=== PATIENT | male | born 1975 | race Caucasian/White ===

== ENCOUNTER 2016-09-11 19:25 | Emergency (ER) | payer OTHER ==
[~2016-09-11 19:25] MED LIST: /CELE20CA OR; BACT800T5 PO; NORC7.5T PO; PYRI200T5 PO; SUPE1POW PO; [UNRECOGNIZED DRUG - OTHER] PO
[2016-09-11] MEDS ORDERED: OXYCODONE/APAP 5MG/325MG(BULK) 1 TAB TAB As Ordered ONE (21:23)
--- NOTE | 2016-09-11 21:36 | EDDOCDS ---
Nurse's Notes [facility] Name: Dank Jaime Age: 41 yrs Sex: Male : 1975 Arrival Date: 09/11/2016 Time: 19:25 Bed I7 / 29 Private MD: No Pcp Diagnosis: Strain of muscle, fascia and tendon of abdomen, lower back and pelvis;Scoliosis Presentation: 09/11 19:44 Presenting complaint: Patient states: woke up with RLQ pain. lower back pain radiating rs3 to lower abdomen, bilateral leg to knee since this morning. worse with bending over. denies burning/urgency with urination. Acute neurological deficits are not present. Mechanism of Injury: No Mechanism of Injury. Adult Sepsis Screening: The patient does not have new or worsening altered mentation. Patient's respiratory rate is less than 22. Systolic blood pressure is greater than 100. Patient has a qSOFA score of 0- Negative Sepsis Screen. Suicide/Homicide risk assessment- the patient denies having any suicidal and/or homicidal ideations and does not present with any other emotional, behavioral or mental health complaints. Status: Patient is not a business services officer or dependent. Transition of care: patient was not received from another setting of care. 19:44 Acuity: ADRIENNE Level 3 rs3 19:44 Method Of Arrival: Walkin/Carried/Asstd rs3 Triage Assessment: 19:48 General: Appears uncomfortable. Pain: Location: lumbar area and low back area. HIV rs3 screening NA for this visit Offered previously. Musculoskeletal: Signs and Symptoms of Compartment Syndrome: no signs of compartment syndrome. Historical: - Allergies: no known allergies; - Home Meds: 1. none - PMHx: Kidney stones; - PSHx: removal of testicular mass; Ureteral Stent- Left; - Social history: Smoking status: Patient states was never smoker of tobacco. No barriers to communication noted, The patient speaks fluent Mongolian. - Family history: Not pertinent. - : The pt / caregiver states he / she is not on anticoagulants. Home medication list is obtained from the patient. - Exposure Risk Screening:: None identified. Screenin:34 Screening information is obtained from the patient. Fall risk: No risks identified. ld5 Assistance ADL's: requires no assistance with activities of daily living. Abuse/DV Screen: The patient / caregiver reports he/she is: not in a situation that causes fear, pain or injury. Nutritional screening: No deficits noted. Advance Directives: There is no active DNR order. home support is adequate. Assessment: 21:32 General: Appears uncomfortable, Behavior is fussy. Pain: Location: low back area Pain ld5 currently is 10 out of 10 on a pain scale. Neurological: Level of Consciousness is awake, alert. Respiratory: Airway is patent Respiratory effort is even, unlabored. Musculoskeletal: Reports pain in back. Vital Signs: 19:26 BP 144 / 89; Pulse 80; Resp 18; Temp 97.8; Pulse Ox 100% ; Weight 90.72 kg; Height 5 elp ft. 10 in. (177.80 cm); Pain 9/10; 21:32 BP 145 / 89; Pulse 78; Resp 18; Temp 98.3; Pulse Ox 95% on R/A; Pain 10/10; ld5 19:26 Body Mass Index 28.70 (90.72 kg, 177.80 cm) el Vitals: 19:26 Log In Time: September 11, 2016 at 19:15. [facility] ED Course: 19:26 Patient visited by Rebecca Ashley PCA. elp 19:26 No Pcp is Private Physician. elp 19:26 Patient moved to Waiting elp 19:27 Patient visited by Rebecca Ashley PCA. elp 19:27 Patient moved to Pre RCE elp 19:47 Triage Initiated rs3 19:50 Patient moved to Triage 3 ct3 20:20 [facility] mo1 20:21 Mayito Pizarro DO is Attending Physician. mo1 20:31 Patient visited by Demetrio Fajardo PA. mo1 20:43 UA Sent. ct3 20:48 Patient moved to I7 / ajs 21:18 Demarcus Lorenzo is Referral Physician. mo1 21:34 The patient / caregiver is instructed regarding the plan of care and ED course. Patient ld5 has correct armband on for positive identification. 21:34 No IV's were initiated during this patient's visit. No procedures done that require ld5 assistance. 21:36 Patient visited by Enriqueta Richey RN. ld5 Administered Medications: 20:49 Drug: ketorolac 60 mg [ketorolac 30 mg/mL (1 mL) injection solution (2 mL)] Route: IM; jo3 Site: right gluteus; 21:32 Follow up: Response: Confirmed pt not driving.; No significant change. ld5 20:49 Drug: Diazepam 5 mg [diazepam 5 mg tablet (1 tabs)] Route: PO; jo3 21:31 Follow up: Response: Confirmed pt not driving.; No significant change. ld5 20:49 Drug: oxyCODONE-acetaminophen 1 tabs [oxycodone-acetaminophen 5 mg-325 mg tablet (1 jo3 tabs)] Route: PO; 21:31 Follow up: Response: Confirmed pt not driving.; No significant change. ld5 21:34 Drug: oxyCODONE-acetaminophen 4 pack 1 packets [oxycodone-acetaminophen 5 mg-325 mg ld5 tablet (1 tabs)] {Co-Signature: jo3 (Caroline Shay RN).} Route: PO; 21:34 Follow up: Response: Med's dispensed home ld5 Order Results: Lab Order: UA; SPEC'M 09/11/16 20:37 Test: APPEARANCE, URINE; Value: CLEAR; Range: CLEAR; Status: F Test: COLOR, URINE; Value: YELLOW; Range: YELLOW; Status: F Test: PH,URINE; Value: 5.0; Range: 5.0-9.0; Units: UNITS; Status: F Test: SPECIFIC GRAVITY URINE AUTO; Value: 1.025; Range: 1.002-1.035; Status: F Test: PROTEIN, URINE AUTO; Value: NEGATIVE; Range: NEGATIVE; Units: mg/dL; Status: F Test: GLUCOSE, URINE (UA) AUTO; Value: NEGATIVE; Range: NEGATIVE; Units: mg/dL; Status: F Test: KETONE, URINE AUTO; Value: NEGATIVE; Range: NEGATIVE; Units: mg/dL; Status: F Test: UROBILINOGEN, URINE AUTO; Value: 0.2; Range: 0.0-2.0; Units: mg/dL; Status: F Test: BILIRUBIN, URINE AUTO; Value: NEGATIVE; Range: NEGATIVE; Status: F Test: NITRITE, URINE AUTO; Value: NEGATIVE; Range: NEGATIVE; Status: F Test: LEUKOCYTE ESTERASE, URINE AUTO; Value: NEGATIVE; Range: NEGATIVE; Status: F Test: BLOOD, URINE BLOOD; Value: NEGATIVE; Range: NEGATIVE; Status: F Test: WBC, URINE AUTO; Value: 1; Range: 0-3; Units: /HPF; Status: F Test: RBC, URINE AUTO; Value: 0; Range: 0-3; Units: /HPF; Status: F Test: BACTERIA, URINE AUTO; Value: NEGATIVE; Range: NEGATIVE; Status: F Test: SQUAMOUS EPITHELIAL CELL UR AU; Value: 0; Range: 0-6; Units: /HPF; Status: F Test: MUCUS, URINE; Value: SMALL; Range: NEGATIVE; Status: F Test: HYALINE CAST, URINE AUTO; Value: 0; Range: 0-1; Units: /LPF; Status: F Outcome: 21:18 Discharge ordered by Provider. mo1 21:34 Discharge Assessment: Patient awake, alert and oriented x 3. No cognitive and/or ld5 functional deficits noted. Patient verbalized understanding of disposition instructions. patient administered narcotics - yes. Pt provided with safe discharge. The following High Risk Discharge criteria are identified: None. Discharged to home ambulatory, with parent. Condition: stable. Discharge instructions given to patient, parents Instructed on discharge instructions, follow up and referral plans. medication usage, no driving heavy equipment, Demonstrated understanding of instructions, medications, Pt was receptive of discharge instructions/ teaching. Prescriptions given X 2, Work note provided to patient. CT Study completed. Property :Personal belongings accompany Pt. 21:35 Patient left the ED. ld5 Signatures: Caroline Shay,RN RN jo3 Naheed MooreRN RN rs3 Enriqueta RicheyRN RN ld5 April Roper, VIDEO GAME SCRIPT WRITER VIDEO GAME SCRIPT WRITER ct3 Samantha Soto Michael, PA PA mo1 Rebecca Ashley, VIDEO GAME SCRIPT WRITER VIDEO GAME SCRIPT WRITER elp Caroline Shay RN jo3 MTDD
--- NOTE | 2016-09-11 21:36 | EDDOCDS ---
Physician Documentation [facility] Name: Dank Jaime Age: 41 yrs Sex: Male : 1975 Arrival Date: 09/11/2016 Time: 19:25 Bed I7 / Private MD: No Pcp Disposition: 09/11/16 21:18 Discharged to Home/Self Care. Impression: Strain of muscle, fascia and tendon of abdomen, lower back and pelvis, Scoliosis. - Condition is Stable. - Discharge Instructions: Back Pain, Adult, Muscle Strain. - Prescriptions for Percocet 5- 325 mg Oral Tablet - take 1 tablet by ORAL route every 6 hours As needed MDD: 4 tabs; 20 tablet. Valium 5 mg Oral Tablet - take 1 tablet by ORAL route every 8 hours As needed MDD: 3 tabs; 20 tablet. - Work Release Form - 3 day, Medication Reconciliation, Local Pharmacy Hours form. - Follow up: Private Physician; When: Call to arrange an appointment; Reason: Recheck today's complaints, Continuance of care. Follow up: Demarcus Lorenzo; When: Call to arrange an appointment; Reason: Recheck today's complaints, Continuance of care. - Problem is new. - Symptoms are unchanged. Historical: - Allergies: no known allergies; - Home Meds: 1. none - PMHx: Kidney stones; - PSHx: removal of testicular mass; Ureteral Stent- Left; - Social history: Smoking status: Patient states was never smoker of tobacco. No barriers to communication noted, The patient speaks fluent Belizean. - Family history: Not pertinent. - : The pt / caregiver states he / she is not on anticoagulants. Home medication list is obtained from the patient. - Exposure Risk Screening:: None identified. Vital Signs: 09/11 19:26 BP 144 / 89; Pulse 80; Resp 18; Temp 97.8; Pulse Ox 100% ; Weight 90.72 kg / 200 lbs; elp Height 5 ft. 10 in. (177.80 cm); Pain 9/10; 21:32 BP 145 / 89; Pulse 78; Resp 18; Temp 98.3; Pulse Ox 95% on R/A; Pain 10/10; ld5 19:26 Body Mass Index 28.70 (90.72 kg, 177.80 cm) elp MDM: 20:32 ketorolac 60 mg IM once ordered. mo1 20:32 Diazepam 5 mg PO once ordered. mo1 20:32 oxyCODONE-acetaminophen 5 mg-325 mg 1 tabs PO once ordered. mo1 20:33 UA Ordered. EDMS 20:35 Spine. Lumbosacral, Complete Ordered. EDMS 21:06 UA Reviewed. mo1 21:19 Financial registration complete. zo 21:23 oxyCODONE-acetaminophen 4 pack 5 mg-325 mg 1 packets PO once; Dispense with pt, take as mo1 per instruction on package ordered. Administered Medications: 20:49 Drug: ketorolac 60 mg [ketorolac 30 mg/mL (1 mL) injection solution (2 mL)] Route: IM; jo3 Site: right gluteus; 21:32 Follow up: Response: Confirmed pt not driving.; No significant change. ld5 20:49 Drug: Diazepam 5 mg [diazepam 5 mg tablet (1 tabs)] Route: PO; jo3 21:31 Follow up: Response: Confirmed pt not driving.; No significant change. ld5 20:49 Drug: oxyCODONE-acetaminophen 1 tabs [oxycodone-acetaminophen 5 mg-325 mg tablet (1 jo3 tabs)] Route: PO; 21:31 Follow up: Response: Confirmed pt not driving.; No significant change. ld5 21:34 Drug: oxyCODONE-acetaminophen 4 pack 1 packets [oxycodone-acetaminophen 5 mg-325 mg ld5 tablet (1 tabs)] {Co-Signature: jo3 (Caroline Shay RN).} Route: PO; 21:34 Follow up: Response: Med's dispensed home ld5 Signatures: Dispatcher [employer] EDMS Sahil Lauren RosemaryRN RN rs3 Enriqueta Richey RN RN ld5 Demetrio Fajardo PA PA mo1 [place]merci, Jennifer RN jo3 Caroline Shay RN jo3 MTDD
--- NOTE | 2016-09-12 01:21 | REP ---
Clinical: Trauma. Technique: AP, lateral, bilateral oblique and coned-down views of the lumbosacral spine. Findings: Mild chronic levoconvex scoliosis noted. Lordosis is maintained. There is no evidence for acute fracture / compression injury or subluxation. Mild to early moderate multilevel degenerative changes include anterior spurring, minimal endplate sclerosis and minimal disc space narrowing most notably at the L5-S1 level. Impression: Scoliosis and mild degenerative changes. No acute fracture / compression injury. Signed by Swapnil Galloway MD 09/12/2016 01:12 A
--- NOTE | 2016-09-13 22:36 | EDDOCDS ---
Physician Documentation [facility] Name: Dank Jaime Age: 41 yrs Sex: Male : 1975 Arrival Date: 09/11/2016 Time: 19:25 Bed I7 / Private MD: No Pcp Disposition: 09/11/16 21:18 Discharged to Home/Self Care. Impression: Strain of muscle, fascia and tendon of abdomen, lower back and pelvis, Scoliosis. - Condition is Stable. - Discharge Instructions: Back Pain, Adult, Muscle Strain. - Prescriptions for Percocet 5- 325 mg Oral Tablet - take 1 tablet by ORAL route every 6 hours As needed MDD: 4 tabs; 20 tablet. Valium 5 mg Oral Tablet - take 1 tablet by ORAL route every 8 hours As needed MDD: 3 tabs; 20 tablet. - Work Release Form - 3 day, Medication Reconciliation, Local Pharmacy Hours form. - Follow up: Private Physician; When: Call to arrange an appointment; Reason: Recheck today's complaints, Continuance of care. Follow up: Demarcus Lorenzo; When: Call to arrange an appointment; Reason: Recheck today's complaints, Continuance of care. - Problem is new. - Symptoms are unchanged. Historical: - Allergies: no known allergies; - Home Meds: 1. none - PMHx: Kidney stones; - PSHx: removal of testicular mass; Ureteral Stent- Left; - Social history: Smoking status: Patient states was never smoker of tobacco. No barriers to communication noted, The patient speaks fluent Ukrainian. - Family history: Not pertinent. - : The pt / caregiver states he / she is not on anticoagulants. Home medication list is obtained from the patient. - Exposure Risk Screening:: None identified. Vital Signs: 09/11 19:26 BP 144 / 89; Pulse 80; Resp 18; Temp 97.8; Pulse Ox 100% ; Weight 90.72 kg / 200 lbs; elp Height 5 ft. 10 in. (177.80 cm); Pain 9/10; 21:32 BP 145 / 89; Pulse 78; Resp 18; Temp 98.3; Pulse Ox 95% on R/A; Pain 10/10; ld5 19:26 Body Mass Index 28.70 (90.72 kg, 177.80 cm) elp MDM: 20:32 ketorolac 60 mg IM once ordered. mo1 20:32 Diazepam 5 mg PO once ordered. mo1 20:32 oxyCODONE-acetaminophen 5 mg-325 mg 1 tabs PO once ordered. mo1 20:33 UA Ordered. EDMS 20:35 Spine. Lumbosacral, Complete Ordered. EDMS 21:06 UA Reviewed. mo1 21:19 Financial registration complete. zo 21:23 oxyCODONE-acetaminophen 4 pack 5 mg-325 mg 1 packets PO once; Dispense with pt, take as mo1 per instruction on package ordered. 21:37 [facility] Payment Agreement was scanned into [employer] and attached to record. zo 02 12:27 T-Sheet-- Draft Copy was scanned into [employer] and attached to record. gb Administered Medications: 09/11 20:49 Drug: ketorolac 60 mg [ketorolac 30 mg/mL (1 mL) injection solution (2 mL)] Route: IM; jo3 Site: right gluteus; 21:32 Follow up: Response: Confirmed pt not driving.; No significant change. ld5 20:49 Drug: Diazepam 5 mg [diazepam 5 mg tablet (1 tabs)] Route: PO; jo3 21:31 Follow up: Response: Confirmed pt not driving.; No significant change. ld5 20:49 Drug: oxyCODONE-acetaminophen 1 tabs [oxycodone-acetaminophen 5 mg-325 mg tablet (1 jo3 tabs)] Route: PO; 21:31 Follow up: Response: Confirmed pt not driving.; No significant change. ld5 21:34 Drug: oxyCODONE-acetaminophen 4 pack 1 packets [oxycodone-acetaminophen 5 mg-325 mg ld5 tablet (1 tabs)] {Co-Signature: jo3 (Caroline Shay RN).} Route: PO; 21:34 Follow up: Response: Med's dispensed home ld5 Signatures: Dispatcher [employer] EDMS Juanita Burgess, Reg Reg gb Sahil Lauren RosemaryRN RN rs3 Enriqueta Richey RN RN ld5 Demetrio Fajardo PA PA mo1 Caroline Shay RN jo3 Caroline Shay RN jo3 The chart was reviewed and I authenticate all verbal orders and agree with the evaluation and treatment provided.Attachments: 21:37 [facility] Payment Agreement zo 09/12 12:27 T-Sheet-- Draft Copy gb Chart Complete MTDD
--- NOTE | 2016-09-13 22:36 | EDDOCDS ---
Physician Documentation [facility] Name: Dank Jaime Age: 41 yrs Sex: Male : 1975 Arrival Date: 09/11/2016 Time: 19:25 Bed I7 / Private MD: No Pcp Disposition: 09/11/16 21:18 Discharged to Home/Self Care. Impression: Strain of muscle, fascia and tendon of abdomen, lower back and pelvis, Scoliosis. - Condition is Stable. - Discharge Instructions: Back Pain, Adult, Muscle Strain. - Prescriptions for Percocet 5- 325 mg Oral Tablet - take 1 tablet by ORAL route every 6 hours As needed MDD: 4 tabs; 20 tablet. Valium 5 mg Oral Tablet - take 1 tablet by ORAL route every 8 hours As needed MDD: 3 tabs; 20 tablet. - Work Release Form - 3 day, Medication Reconciliation, Local Pharmacy Hours form. - Follow up: Private Physician; When: Call to arrange an appointment; Reason: Recheck today's complaints, Continuance of care. Follow up: Demarcus Lorenzo; When: Call to arrange an appointment; Reason: Recheck today's complaints, Continuance of care. - Problem is new. - Symptoms are unchanged. Historical: - Allergies: no known allergies; - Home Meds: 1. none - PMHx: Kidney stones; - PSHx: removal of testicular mass; Ureteral Stent- Left; - Social history: Smoking status: Patient states was never smoker of tobacco. No barriers to communication noted, The patient speaks fluent Austrian. - Family history: Not pertinent. - : The pt / caregiver states he / she is not on anticoagulants. Home medication list is obtained from the patient. - Exposure Risk Screening:: None identified. Vital Signs: 09/11 19:26 BP 144 / 89; Pulse 80; Resp 18; Temp 97.8; Pulse Ox 100% ; Weight 90.72 kg / 200 lbs; elp Height 5 ft. 10 in. (177.80 cm); Pain 9/10; 21:32 BP 145 / 89; Pulse 78; Resp 18; Temp 98.3; Pulse Ox 95% on R/A; Pain 10/10; ld5 19:26 Body Mass Index 28.70 (90.72 kg, 177.80 cm) elp MDM: 20:32 ketorolac 60 mg IM once ordered. mo1 20:32 Diazepam 5 mg PO once ordered. mo1 20:32 oxyCODONE-acetaminophen 5 mg-325 mg 1 tabs PO once ordered. mo1 20:33 UA Ordered. EDMS 20:35 Spine. Lumbosacral, Complete Ordered. EDMS 21:06 UA Reviewed. mo1 21:19 Financial registration complete. zo 21:23 oxyCODONE-acetaminophen 4 pack 5 mg-325 mg 1 packets PO once; Dispense with pt, take as mo1 per instruction on package ordered. 21:37 [facility] Payment Agreement was scanned into [employer] and attached to record. zo 02 12:27 T-Sheet-- Draft Copy was scanned into [employer] and attached to record. gb Administered Medications: 09/11 20:49 Drug: ketorolac 60 mg [ketorolac 30 mg/mL (1 mL) injection solution (2 mL)] Route: IM; jo3 Site: right gluteus; 21:32 Follow up: Response: Confirmed pt not driving.; No significant change. ld5 20:49 Drug: Diazepam 5 mg [diazepam 5 mg tablet (1 tabs)] Route: PO; jo3 21:31 Follow up: Response: Confirmed pt not driving.; No significant change. ld5 20:49 Drug: oxyCODONE-acetaminophen 1 tabs [oxycodone-acetaminophen 5 mg-325 mg tablet (1 jo3 tabs)] Route: PO; 21:31 Follow up: Response: Confirmed pt not driving.; No significant change. ld5 21:34 Drug: oxyCODONE-acetaminophen 4 pack 1 packets [oxycodone-acetaminophen 5 mg-325 mg ld5 tablet (1 tabs)] {Co-Signature: jo3 (Caroline Shay RN).} Route: PO; 21:34 Follow up: Response: Med's dispensed home ld5 Signatures: Dispatcher [employer] EDMS Juanita Burgess, Reg Reg gb Sahil Lauren RosemaryRN RN rs3 Enriqueta Richey RN RN ld5 Demetrio Fajardo PA PA mo1 Caroline Shay RN jo3 Caroline Shay RN jo3 The chart was reviewed and I authenticate all verbal orders and agree with the evaluation and treatment provided.Attachments: 21:37 [facility] Payment Agreement zo 09/12 12:27 T-Sheet-- Draft Copy gb Chart Complete MTDD
--- NOTE | 2016-09-13 22:36 | EDDOCDS ---
Nurse's Notes [facility] Name: Dank Jaime Age: 41 yrs Sex: Male : 1975 Arrival Date: 09/11/2016 Time: 19:25 Bed I7 / 29 Private MD: No Pcp Diagnosis: Strain of muscle, fascia and tendon of abdomen, lower back and pelvis;Scoliosis Presentation: 09/11 19:44 Presenting complaint: Patient states: woke up with RLQ pain. lower back pain radiating rs3 to lower abdomen, bilateral leg to knee since this morning. worse with bending over. denies burning/urgency with urination. Acute neurological deficits are not present. Mechanism of Injury: No Mechanism of Injury. Adult Sepsis Screening: The patient does not have new or worsening altered mentation. Patient's respiratory rate is less than 22. Systolic blood pressure is greater than 100. Patient has a qSOFA score of 0- Negative Sepsis Screen. Suicide/Homicide risk assessment- the patient denies having any suicidal and/or homicidal ideations and does not present with any other emotional, behavioral or mental health complaints. 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 Transition of care: patient was not received from another setting of care. 19:44 Acuity: ADRIENNE Level 3 rs3 19:44 Method Of Arrival: Walkin/Carried/Asstd rs3 Triage Assessment: 19:48 General: Appears uncomfortable. Pain: Location: lumbar area and low back area. HIV rs3 screening NA for this visit Offered previously. Musculoskeletal: Signs and Symptoms of Compartment Syndrome: no signs of compartment syndrome. Historical: - Allergies: no known allergies; - Home Meds: 1. none - PMHx: Kidney stones; - PSHx: removal of testicular mass; Ureteral Stent- Left; - Social history: Smoking status: Patient states was never smoker of tobacco. No barriers to communication noted, The patient speaks fluent Chinese. - Family history: Not pertinent. - : The pt / caregiver states he / she is not on anticoagulants. Home medication list is obtained from the patient. - Exposure Risk Screening:: None identified. Screenin:34 Screening information is obtained from the patient. Fall risk: No risks identified. ld5 Assistance ADL's: requires no assistance with activities of daily living. Abuse/DV Screen: The patient / caregiver reports he/she is: not in a situation that causes fear, pain or injury. Nutritional screening: No deficits noted. Advance Directives: There is no active DNR order. home support is adequate. Assessment: 21:32 General: Appears uncomfortable, Behavior is fussy. Pain: Location: low back area Pain ld5 currently is 10 out of 10 on a pain scale. Neurological: Level of Consciousness is awake, alert. Respiratory: Airway is patent Respiratory effort is even, unlabored. Musculoskeletal: Reports pain in back. Vital Signs: 19:26 BP 144 / 89; Pulse 80; Resp 18; Temp 97.8; Pulse Ox 100% ; Weight 90.72 kg; Height 5 elp ft. 10 in. (177.80 cm); Pain 9/10; 21:32 BP 145 / 89; Pulse 78; Resp 18; Temp 98.3; Pulse Ox 95% on R/A; Pain 10/10; ld5 19:26 Body Mass Index 28.70 (90.72 kg, 177.80 cm) el Vitals: 19:26 Log In Time: September 11, 2016 at 19:15. elp ED Course: 19:26 Patient visited by Rebecca Ashley PCA. elp 19:26 No Pcp is Private Physician. elp 19:26 Patient moved to Waiting elp 19:27 Patient visited by Rebecca Ashley PCA. elp 19:27 Patient moved to Pre RCE elp 19:47 Triage Initiated rs3 19:50 Patient moved to Triage 3 ct3 20:20 [facility] mo[facility] 20:21 Mayito Pizarro DO is Attending Physician. mo1 20:31 Patient visited by Demetrio Fajardo PA. mo1 20:43 UA Sent. ct3 20:48 Patient moved to I7 / ajs 21:18 Demarcus Lorenzo is Referral Physician. mo1 21:34 The patient / caregiver is instructed regarding the plan of care and ED course. Patient ld5 has correct armband on for positive identification. 21:34 No IV's were initiated during this patient's visit. No procedures done that require ld5 assistance. 21:36 Patient visited by Enriqueta Richey RN. ld5 21:37 [place] [place] into [employer] and attached to record. zo 09/12 01:41 Spine. Lumbosacral, Complete Returned. EDMS 12:27 T-Sheet-- Draft Copy was scanned into [employer] and attached to record. gb Administered Medications: 09/11 20:49 Drug: ketorolac 60 mg [ketorolac 30 mg/mL (1 mL) injection solution (2 mL)] Route: IM; jo3 Site: right gluteus; 21:32 Follow up: Response: Confirmed pt not driving.; No significant change. ld5 20:49 Drug: Diazepam 5 mg [diazepam 5 mg tablet (1 tabs)] Route: PO; jo3 21:31 Follow up: Response: Confirmed pt not driving.; No significant change. ld5 20:49 Drug: oxyCODONE-acetaminophen 1 tabs [oxycodone-acetaminophen 5 mg-325 mg tablet (1 jo3 tabs)] Route: PO; 21:31 Follow up: Response: Confirmed pt not driving.; No significant change. ld5 21:34 Drug: oxyCODONE-acetaminophen 4 pack 1 packets [oxycodone-acetaminophen 5 mg-325 mg ld5 tablet (1 tabs)] {Co-Signature: jo3 (Caroline Shay RN).} Route: PO; 21:34 Follow up: Response: Med's dispensed home ld5 Order Results: Lab Order: UA; SPEC'M 09/11/16 20:37 Test: APPEARANCE, URINE; Value: CLEAR; Range: CLEAR; Status: F Test: COLOR, URINE; Value: YELLOW; Range: YELLOW; Status: F Test: PH,URINE; Value: 5.0; Range: 5.0-9.0; Units: UNITS; Status: F Test: SPECIFIC GRAVITY URINE AUTO; Value: 1.025; Range: 1.002-1.035; Status: F Test: PROTEIN, URINE AUTO; Value: NEGATIVE; Range: NEGATIVE; Units: mg/dL; Status: F Test: GLUCOSE, URINE (UA) AUTO; Value: NEGATIVE; Range: NEGATIVE; Units: mg/dL; Status: F Test: KETONE, URINE AUTO; Value: NEGATIVE; Range: NEGATIVE; Units: mg/dL; Status: F Test: UROBILINOGEN, URINE AUTO; Value: 0.2; Range: 0.0-2.0; Units: mg/dL; Status: F Test: BILIRUBIN, URINE AUTO; Value: NEGATIVE; Range: NEGATIVE; Status: F Test: NITRITE, URINE AUTO; Value: NEGATIVE; Range: NEGATIVE; Status: F Test: LEUKOCYTE ESTERASE, URINE AUTO; Value: NEGATIVE; Range: NEGATIVE; Status: F Test: BLOOD, URINE BLOOD; Value: NEGATIVE; Range: NEGATIVE; Status: F Test: WBC, URINE AUTO; Value: 1; Range: 0-3; Units: /HPF; Status: F Test: RBC, URINE AUTO; Value: 0; Range: 0-3; Units: /HPF; Status: F Test: BACTERIA, URINE AUTO; Value: NEGATIVE; Range: NEGATIVE; Status: F Test: SQUAMOUS EPITHELIAL CELL UR AU; Value: 0; Range: 0-6; Units: /HPF; Status: F Test: MUCUS, URINE; Value: SMALL; Range: NEGATIVE; Status: F Test: HYALINE CAST, URINE AUTO; Value: 0; Range: 0-1; Units: /LPF; Status: F Radiology Order: Spine. Lumbosacral, Complete Test: Spine. Lumbosacral, Complete REASON FOR EXAMINATION: Trauma; Clinical: Trauma.; ; Technique: AP, lateral, bilateral oblique and coned-down views of the; lumbosacral spine.; ; Findings:; Mild chronic levoconvex scoliosis noted. Lordosis is maintained. There is no; evidence for acute fracture / compression injury or subluxation. Mild to early; moderate multilevel degenerative changes include anterior spurring, minimal; endplate sclerosis and minimal disc space narrowing most notably at the L5-S1; level.; ; Impression:; Scoliosis and mild degenerative changes.; No acute fracture / compression injury.; ; ; Signed by; Swapnil Galloway MD 09/12/2016 01:12 A; Outcome: 21:18 Discharge ordered by Provider. mo1 21:34 Discharge Assessment: Patient awake, alert and oriented x 3. No cognitive and/or ld5 functional deficits noted. Patient verbalized understanding of disposition instructions. patient administered narcotics - yes. Pt provided with safe discharge. The following High Risk Discharge criteria are identified: None. Discharged to home ambulatory, with parent. Condition: stable. Discharge instructions given to patient, parents Instructed on discharge instructions, follow up and referral plans. medication usage, no driving heavy equipment, Demonstrated understanding of instructions, medications, Pt was receptive of discharge instructions/ teaching. Prescriptions given X 2, Work note provided to patient. CT Study completed. Property :Personal belongings accompany Pt. 21:35 Patient left the ED. ld5 Signatures: Dispatcher [employer] EDMS Juanita Burgess, Reg Reg Caroline Spence RN RN jo3 Sahil Lauren RosemaryRN RN rs3 Enriqueta Richey RN RN ld5 April Roper, PREVENTIVE MAINTENANCE COORDINATOR PREVENTIVE MAINTENANCE COORDINATOR ct3 Samantha Soto Michael, PA PA mo1 Rebecca Ashley, PREVENTIVE MAINTENANCE COORDINATOR PREVENTIVE MAINTENANCE COORDINATOR elp Caroline Shay RN jo3 Chart Complete MTDD
== END 2016-09-11 21:35 | disposition home or self-care (01) ==
LOC: M ED 19:25
DX: S39.012A Strain of muscle, fascia and tendon of lower back, initial encounter (principal); M41.9 Scoliosis, unspecified; X58.XXXA Exposure to other specified factors, initial encounter; Y92.89 Other specified places as the place of occurrence of the external cause; Y93.89 Activity, other specified; Y99.8 Other external cause status
CPT/HCPCS: 72110; 81001; 96372; 99284; J1885

== ENCOUNTER → 2016-09-15 | Outpatient (CLI) | payer OTHER ==
--- NOTE | 2016-09-15 20:01 | REP ---
MRI LUMBAR SPINE WITHOUT CONTRAST: HISTORY: Back pain. COMPARISON: 03/05/2006. Decreased signal intensity on T2-weighted images is present in the L4-5 and L5-S1 intervertebral discs. The discs are decreased in height. These findings are consistent with disc degeneration. There is no disc bulge or herniation at the L1-2 through L3-4 levels. There is hypertrophy of the posterior articulating facets at the L2-3 and L3-4 levels. The nerves exit the neural foramina without compression. A diffuse disc bulge and small disc protrusion central and eccentric to the right are present at the L4-5 level. There is minimal compression of the thecal sac. There is hypertrophy of the posterior articulating facets. The L4 nerved exit the neural foramina without compression. A diffuse disc bulge and small central disc protrusion are present at the L5-S1 level. There is minimal compression of the thecal sac. The L5 nerves exit the neural foramina without compression. The conus medullaris is normal in appearance terminating at the level of the T12-L1 intervertebral disc. A hemangioma is present in the L3 vertebral body. Increased signal intensity on T2-weighted images is present in the endplates of the L5 and S1 vertebral bodies. This represents degenerative change. IMPRESSION: Diffuse disc bulge and small disc protrusion at the L4-5 and L5-S1 levels with minimal thecal sac compression. There is no significant change compared to the previous study. Signed by Dick Beck MD 09/16/2016 08:06 A
== END ==
LOC: M RAD 18:14
PROVIDERS: ATTEND Surgery
DX: M51.26 Other intervertebral disc displacement, lumbar region (principal)

== ENCOUNTER 2016-09-16 13:39 | Emergency (ER) | payer OTHER ==
[2016-09-16] MEDS ORDERED: ISOVUE-370 76% 100ML VIAL (Q9967) As Ordered ONE (15:03)
[2016-09-16] MEDS ORDERED: HYDROmorphone HCL 1 MG/ML SYRINGE (J1170) As Ordered ONE (15:04)
--- NOTE | 2016-09-16 16:12 | REP ---
CT study of the abdomen and pelvis without oral but with IV contrast: History: Abdominal pain. Comparison CT study 07/22/2016. CT contrast dose: 100 mL of Isovue-[address] findings: Digital medicaid biller radiograph demonstrates an unremarkable bowel gas pattern. The lung bases are clear. The liver and the spleen are normal in size homogeneous in texture. No adrenal lesion is seen on either side. Pancreas and gallbladder are unremarkable. The kidneys enhance symmetrically and are morphologically intact. There are scattered fluid-filled small bowel loops in the central abdomen which are borderline in caliber. No clear point of transition although the distal ileal loops are smaller. A normal appendix is seen. Colonic loops are unremarkable. There is mild left colonic diverticulosis without CT evidence of diverticulitis. There are dystrophic calcifications in the prostate. Seminal vesicles and urinary bladder are intact. No pelvic mass or adenopathy is seen. No abdominal wall defect is observed. There is no evidence of free intraperitoneal air. Normal caliber aorta. No bony destructive lesions seen. Impression: Normal appendix seen. Borderline caliber small bowel loops. No obstructive lesion seen. Left colonic diverticulosis without CT evidence of diverticulitis. No other abnormality. Signed by Andrea Schofield MD 09/16/2016 04:22 P
--- NOTE | 2016-09-16 16:17 | EDDOCDS ---
Physician Documentation [facility] Name: Dank Jaime Age: 41 yrs Sex: Male : 1975 Arrival Date: 09/16/2016 Time: 13:39 Bed I5 / M5 Private MD: No Pcp Disposition: 09/16/16 16:09 Discharged to Home/Self Care. Impression: Low back pain, Abdominal and pelvic pain - LLQ. - Condition is Stable. - Discharge Instructions: Back Pain, Adult. - Medication Reconciliation form. - Follow up: Emergency Department; When: As needed. Follow up: Private Physician; When: Call to arrange an appointment; Reason: Wound/Symptom Recheck, Recheck today's complaints, Worsening of conditions, Continuance of care. - Problem is an ongoing problem. - Symptoms have improved. Historical: - Allergies: no known allergies; - Home Meds: 1. none - PMHx: Kidney stones; - PSHx: removal of testicular mass; Ureteral Stent- Left; - Social history: Smoking status: Patient states was never smoker of tobacco. No barriers to communication noted, The patient speaks fluent Swedish, Speaks appropriately for age. - Family history: Not pertinent. - : The pt / caregiver states he / she is not on anticoagulants. Home medication list is obtained from the patient. - Exposure Risk Screening:: None identified. Vital Signs: 09/16 13:42 BP 136 / 74; Pulse 67; Resp 18 S; Temp 97.2(O); Pulse Ox 65% on R/A; Weight 92.53 kg / gr2 203.99 lbs (R); Height 5 ft. 10 in. (177.80 cm) (R); Pain 9/10; 15:37 BP 120 / 61; Pulse 72; Resp 18; Temp 97.6; Pulse Ox 97% ; jam1 15:39 Pain 9/10; mcp 15:40 BP 10 / ???; jam1 16:13 BP 144 / 82; Pulse 70; Resp 18; Temp 98.2; Pulse Ox 97% ; Pain 10/10; jam1 13:42 Body Mass Index 29.27 (92.53 kg, 177.80 cm) gr2 MDM: 14:48 IV Saline Lock ordered. cc10 14:49 Dilaudid - HYDROmorphone 0.5 mg IVP once ordered. cc10 14:49 Misc. Nursing Order ordered. cc10 14:50 CT ABD & PELVIS: IV Contrast Only Ordered. EDMS 16:06 Financial registration complete. zo 16:07 [facility] Payment Agreement was scanned into [email or web address] and attached to record. jp5 Administered Medications: 15:09 Drug: Dilaudid - HYDROmorphone 0.5 mg [hydromorphone 1 mg/mL injection syringe (0.5 mcp mL)] Route: IVP; Site: left antecubital; 15:39 Follow up: Pain 9/ Adult; Response: No significant change. [facility] Signatures: Dispatcher [employer] EDMS Radha Jenkins RN RN Sahil Francois Hannah RN RN hs1 Sean Meyer, PAMarkC PARenzo cc10 Katharine Johnson jp5 The chart was reviewed and I authenticate all verbal orders and agree with the evaluation and treatment provided.Attachments: 16:07 [facility] Payment Agreement jp5 MTDD
--- NOTE | 2016-09-16 16:17 | EDDOCDS ---
Nurse's Notes [facility] Name: Dank Jaime Age: 41 yrs Sex: Male : 1975 Arrival Date: 09/16/2016 Time: 13:39 Bed I5 / M5 Private MD: No Pcp Diagnosis: Low back pain;Abdominal and pelvic pain-LLQ Presentation: 09/16 13:44 Presenting complaint: Patient states: was sent here by Urgent Care clinic for CT scan. hs1 Seen here the other day for lower abdominal pain wrapping around to back diagnosed with scoliosis and was sent to specialist and is unable to see specialist until the . Patient was a patient in ER yesterday and had MRIs performed. Clinic doctor believes something in abdomen is causing back pain. Patient went to clinic originally for a work note to be off work longer. Acute neurological deficits are not present. Mechanism of Injury: No Mechanism of Injury. Adult Sepsis Screening: The patient does not have new or worsening altered mentation. Patient's respiratory rate is less than 22. Systolic blood pressure is greater than 100. Patient has a qSOFA score of 0- Negative Sepsis Screen. Suicide/Homicide risk assessment- the patient denies having any suicidal and/or homicidal ideations and does not present with any other emotional, behavioral or mental health complaints. Status: Patient is not a director of women's services or dependent. Transition of care: patient was not received from another setting of care. 13:44 Acuity: ADRINENE Level 3 hs1 13:44 Method Of Arrival: Walkin/Carried/Asstd hs1 Triage Assessment: 13:49 General: Appears in no apparent distress, Behavior is appropriate for age, cooperative. hs1 Pain: Location: back Pain currently is 10 out of 10 on a pain scale. HIV screening NA for this visit Offered previously. Musculoskeletal: No deficits noted. Historical: - Allergies: no known allergies; - Home Meds: 1. none - PMHx: Kidney stones; - PSHx: removal of testicular mass; Ureteral Stent- Left; - Social history: Smoking status: Patient states was never smoker of tobacco. No barriers to communication noted, The patient speaks fluent Ethiopian, Speaks appropriately for age. - Family history: Not pertinent. - : The pt / caregiver states he / she is not on anticoagulants. Home medication list is obtained from the patient. - Exposure Risk Screening:: None identified. Screenin:10 Screening information is obtained from the patient. Fall risk: No risks identified. mcp Assistance ADL's: requires no assistance with activities of daily living. Abuse/DV Screen: The patient / caregiver reports he/she is: not in a situation that causes fear, pain or injury. Nutritional screening: No deficits noted. Advance Directives: There is no active DNR order. home support is adequate. Assessment: 15:09 General: Appears uncomfortable, Behavior is cooperative. Pain: Location: back and mcp abdomen Pain currently is 7 out of 10 on a pain scale. Neurological: No deficits noted. Respiratory: Airway is patent Respiratory effort is even, unlabored. GI: Abdomen is non- distended Bowel sounds present X 4 quads. Abd is soft X 4 quads. Derm: Skin is pink, warm & dry. 16:14 General: Appears in no apparent distress, Behavior is cooperative. Pain: Location: mcp abdomen Pain currently is 9 out of 10 on a pain scale. Neurological: No deficits noted. Respiratory: Airway is patent Respiratory effort is even, unlabored. Derm: Skin is pink, warm & dry. Vital Signs: 13:42 BP 136 / 74; Pulse 67; Resp 18 S; Temp 97.2(O); Pulse Ox 65% on R/A; Weight 92.53 kg gr2 (R); Height 5 ft. 10 in. (177.80 cm) (R); Pain 9/10; 15:37 BP 120 / 61; Pulse 72; Resp 18; Temp 97.6; Pulse Ox 97% ; jam1 15:39 Pain 9/10; mcp 15:40 BP 10 / ???; jam1 16:13 BP 144 / 82; Pulse 70; Resp 18; Temp 98.2; Pulse Ox 97% ; Pain 10/10; jam1 13:42 Body Mass Index 29.27 (92.53 kg, 177.80 cm) gr2 Vitals: 13:42 Log In Time: September 16, 2016 at 13:42. gr2 ED Course: 13:41 Patient visited by Melody Weems. gr2 13:41 Patient moved to Waiting gr2 13:42 No Pcp is Private Physician. gr2 13:43 Patient visited by Melody Weems. gr2 13:43 Patient moved to Pre RCE gr2 13:49 Triage Initiated hs1 14:22 Patient moved to Triage 1 mk4 14:37 Sean Meyer PA-C [facility] cc10 14:37 Gayle Marshall MD is Attending Physician. cc10 14:41 Patient visited by Sean Meyer PA-C. cc10 14:41 Patient visited by Sean Meyer PA-C. cc10 14:50 Patient moved to I5 / M5 mlb1 15:10 Patient visited by Radha Jenkins RN. mcp 15:10 Inserted saline lock: 20 gauge in left antecubital area The patient tolerated the mcp procedure well. 15:19 Pt greeted and oriented to ED. Patient advised of names of staff involved in care, jam1 location of call gill, wait times and NPO status. Patient has correct armband on for positive identification. Bed in low position. Call light in reach. Side rails up X 1. Door closed. 16:07 [facility] Payment Agreement was scanned into [employer] and attached to record. 5 16:14 Discontinued lock intact, bleeding controlled, pressure dressing applied, No mcp redness/swelling at site. No procedures done that require assistance. 16:15 The patient / caregiver is instructed regarding the plan of care and ED course. mcp Administered Medications: 15:09 Drug: Dilaudid - HYDROmorphone 0.5 mg [hydromorphone 1 mg/mL injection syringe (0.5 mcp mL)] Route: IVP; Site: left antecubital; 15:39 Follow up: Pain 9/10 Adult; Response: No significant change. mcp Order Results: There are currently no results for this order. Outcome: 15:17 CT Study completed. ck1 16:09 Discharge ordered by Provider. cc10 16:15 Discharge Assessment: patient administered narcotics - yes. Pt provided with safe mcp discharge. The following High Risk Discharge criteria are identified: None. Discharged to home ambulatory, with parent. Condition: stable. Discharge instructions given to patient, Instructed on discharge instructions, follow up and referral plans. Demonstrated understanding of instructions, Pt was receptive of discharge instructions/ teaching. Property sent home with patient. 16:16 Patient left the ED. mcp Signatures: Radha Jenkins RN RN Herlinda Coombs, STITCHDOWN THREAD LASTER STITCHDOWN THREAD LASTER jam1 Demetrio Morrison RN RN mlb1 Graciela GonzalezRN RN ck1 Balbina Pascual RN RN hs1 Melody Weems gr2 Hilda Hinojosa RN RN mk4 Sean Meyer PA-C PA-C cc10 Katharine Johnson jp5 MTDD
--- NOTE | 2016-09-18 17:17 | EDDOCDS ---
Nurse's Notes [facility] Name: Dank Jaime Age: 41 yrs Sex: Male : 1975 Arrival Date: 09/16/2016 Time: 13:39 Bed I5 / M5 Private MD: No Pcp Diagnosis: Low back pain;Abdominal and pelvic pain-LLQ Presentation: 09/16 13:44 Presenting complaint: Patient states: was sent here by Urgent Care clinic for CT scan. hs1 Seen here the other day for lower abdominal pain wrapping around to back diagnosed with scoliosis and was sent to specialist and is unable to see specialist until the . Patient was a patient in ER yesterday and had MRIs performed. Clinic doctor believes something in abdomen is causing back pain. Patient went to clinic originally for a work note to be off work longer. Acute neurological deficits are not present. Mechanism of Injury: No Mechanism of Injury. Adult Sepsis Screening: The patient does not have new or worsening altered mentation. Patient's respiratory rate is less than 22. Systolic blood pressure is greater than 100. Patient has a qSOFA score of 0- Negative Sepsis Screen. Suicide/Homicide risk assessment- the patient denies having any suicidal and/or homicidal ideations and does not present with any other emotional, behavioral or mental health complaints. Status: Patient is not a transportation services representative or dependent. Transition of care: Patient was received from [facility]. 13:44 Acuity: ADRIENNE Level 3 hs1 13:44 Method Of Arrival: Walkin/Carried/Asstd hs1 Triage Assessment: 13:49 General: Appears in no apparent distress, Behavior is appropriate for age, cooperative. hs1 Pain: Location: back Pain currently is 10 out of 10 on a pain scale. HIV screening NA for this visit Offered previously. Musculoskeletal: No deficits noted. Historical: - Allergies: no known allergies; - Home Meds: 1. none - PMHx: Kidney stones; - PSHx: removal of testicular mass; Ureteral Stent- Left; - Social history: Smoking status: Patient states was never smoker of tobacco. No barriers to communication noted, The patient speaks fluent Kittitian, Speaks appropriately for age. - Family history: Not pertinent. - : The pt / caregiver states he / she is not on anticoagulants. Home medication list is obtained from the patient. - Exposure Risk Screening:: None identified. Screenin:10 Screening information is obtained from the patient. Fall risk: No risks identified. mcp Assistance ADL's: requires no assistance with activities of daily living. Abuse/DV Screen: The patient / caregiver reports he/she is: not in a situation that causes fear, pain or injury. Nutritional screening: No deficits noted. Advance Directives: There is no active DNR order. home support is adequate. Assessment: 15:09 General: Appears uncomfortable, Behavior is cooperative. Pain: Location: back and mcp abdomen Pain currently is 7 out of 10 on a pain scale. Neurological: No deficits noted. Respiratory: Airway is patent Respiratory effort is even, unlabored. GI: Abdomen is non- distended Bowel sounds present X 4 quads. Abd is soft X 4 quads. Derm: Skin is pink, warm & dry. 16:14 General: Appears in no apparent distress, Behavior is cooperative. Pain: Location: mcp abdomen Pain currently is 9 out of 10 on a pain scale. Neurological: No deficits noted. Respiratory: Airway is patent Respiratory effort is even, unlabored. Derm: Skin is pink, warm & dry. Vital Signs: 13:42 BP 136 / 74; Pulse 67; Resp 18 S; Temp 97.2(O); Pulse Ox 65% on R/A; Weight 92.53 kg gr2 (R); Height 5 ft. 10 in. (177.80 cm) (R); Pain 9/10; 15:37 BP 120 / 61; Pulse 72; Resp 18; Temp 97.6; Pulse Ox 97% ; jam1 15:39 Pain 9/10; mcp 15:40 BP 10 / ???; jam1 16:13 BP 144 / 82; Pulse 70; Resp 18; Temp 98.2; Pulse Ox 97% ; Pain 10/10; jam1 13:42 Body Mass Index 29.27 (92.53 kg, 177.80 cm) gr2 Vitals: 13:42 Log In Time: September 16, 2016 at 13:42. gr2 ED Course: 13:41 Patient visited by Melody Weems. gr2 13:41 Patient moved to Waiting gr2 13:42 No Pcp is Private Physician. gr2 13:43 Patient visited by Melody Weems. gr2 13:43 Patient moved to Pre RCE gr2 13:49 Triage Initiated hs1 14:22 Patient moved to Triage 1 mk4 14:37 Sean Meyer PA-C is [facility]. cc10 14:37 Gayle Marshall MD is Attending Physician. cc10 14:41 Patient visited by Sean Meyer PA-C. cc10 14:41 Patient visited by Sean Meyer PA-C. cc10 14:50 Patient moved to I5 / M5 mlb1 15:10 Patient visited by Radha Jenkins RN. mcp 15:10 Inserted saline lock: 20 gauge in left antecubital area The patient tolerated the mcp procedure well. 15:19 Pt greeted and oriented to ED. Patient advised of names of staff involved in care, jam1 location of call gill, wait times and NPO status. Patient has correct armband on for positive identification. Bed in low position. Call light in reach. Side rails up X 1. Door closed. 16:07 [facility] Payment Agreement was scanned into [employer] and attached to record. 5 16:14 Discontinued lock intact, bleeding controlled, pressure dressing applied, No mcp redness/swelling at site. No procedures done that require assistance. 16:15 The patient / caregiver is instructed regarding the plan of care and ED course. [facility] 16:27 CT ABD & PELVIS: IV Contrast Only Returned. EDMS 09/17 12:24 T-Sheet-- Draft Copy was scanned into [employer] and attached to record. gb Administered Medications: 09/16 15:09 Drug: Dilaudid - HYDROmorphone 0.5 mg [hydromorphone 1 mg/mL injection syringe (0.5 mcp mL)] Route: IVP; Site: left antecubital; 15:39 Follow up: Pain 9/10 Adult; Response: No significant change. [facility] Order Results: Radiology Order: CT ABD & PELVIS: IV Contrast Only Test: CT ABD & PELVIS: IV Contrast Only REASON FOR EXAMINATION: Abdomen Pain; CT study of the abdomen and pelvis without oral but with IV contrast:; ; History: Abdominal pain.; ; Comparison CT study 07/22/2016.; ; CT contrast dose: 100 mL of Isovue-370 is administered intravenously.; ; CT findings: Digital research assistant professor radiograph demonstrates an unremarkable bowel gas; pattern. The lung bases are clear. The liver and the spleen are normal in size; homogeneous in texture. No adrenal lesion is seen on either side. Pancreas and; gallbladder are unremarkable. The kidneys enhance symmetrically and are; morphologically intact. There are scattered fluid-filled small bowel loops in; the central abdomen which are borderline in caliber. No clear point of; transition although the distal ileal loops are smaller. A normal appendix is; seen. Colonic loops are unremarkable. There is mild left colonic diverticulosis; without CT evidence of diverticulitis. There are dystrophic calcifications in; the prostate. Seminal vesicles and urinary bladder are intact. No pelvic mass; or adenopathy is seen. No abdominal wall defect is observed. There is no; evidence of free intraperitoneal air. Normal caliber aorta. No bony destructive; lesions seen.; ; Impression:; ; Normal appendix seen. Borderline caliber small bowel loops. No obstructive; lesion seen. Left colonic diverticulosis without CT evidence of diverticulitis.; No other abnormality.; ; ; Signed by; Andrea Schofield MD 09/16/2016 04:22 P; Outcome: 15:17 CT Study completed. ck1 16:09 Discharge ordered by Provider. cc10 16:15 Discharge Assessment: patient administered narcotics - yes. Pt provided with safe mcp discharge. The following High Risk Discharge criteria are identified: None. Discharged to home ambulatory, with parent. Condition: stable. Discharge instructions given to patient, Instructed on discharge instructions, follow up and referral plans. Demonstrated understanding of instructions, Pt was receptive of discharge instructions/ teaching. Property sent home with patient. 16:16 [address] the ED[address] [facility] Signatures: Dispatcher [employer] EDMS Caroline Holland RN RN Radha Murillo RN RN [facility] Herlinda Gonzalez, POWER REACTOR OPERATOR POWER REACTOR OPERATOR jam1 Juanita Burgess, Reg Reg gb Demetrio Morrison RN RN mlb1 Graciela GonzalezRN RN ck1 Balbina Pascual RN RN hs1 Melody Weems gr2 Hilda Hinojosa RN RN mk4 Sean Meyer, PA-C PA-C cc10 Katharine Johnson jp5 Corrections: (The following items were deleted from the chart) 16:28 13:44 Transition of care: patient was not received from another setting of care. hs1 bony Chart Complete MTDD
--- NOTE | 2016-09-18 17:17 | EDDOCDS ---
Physician Documentation [facility] Name: Dank Jaime Age: 41 yrs Sex: Male : 1975 Arrival Date: 09/16/2016 Time: 13:39 Bed I5 / M5 Private MD: No Pcp Disposition: 09/16/16 16:09 Discharged to Home/Self Care. Impression: Low back pain, Abdominal and pelvic pain - LLQ. - Condition is Stable. - Discharge Instructions: Back Pain, Adult. - Medication Reconciliation form. - Follow up: Emergency Department; When: As needed. Follow up: Private Physician; When: Call to arrange an appointment; Reason: Wound/Symptom Recheck, Recheck today's complaints, Worsening of conditions, Continuance of care. - Problem is an ongoing problem. - Symptoms have improved. Historical: - Allergies: no known allergies; - Home Meds: 1. none - PMHx: Kidney stones; - PSHx: removal of testicular mass; Ureteral Stent- Left; - Social history: Smoking status: Patient states was never smoker of tobacco. No barriers to communication noted, The patient speaks fluent Irish, Speaks appropriately for age. - Family history: Not pertinent. - : The pt / caregiver states he / she is not on anticoagulants. Home medication list is obtained from the patient. - Exposure Risk Screening:: None identified. Vital Signs: 09/16 13:42 BP 136 / 74; Pulse 67; Resp 18 S; Temp 97.2(O); Pulse Ox 65% on R/A; Weight 92.53 kg / gr2 203.99 lbs (R); Height 5 ft. 10 in. (177.80 cm) (R); Pain 9/10; 15:37 BP 120 / 61; Pulse 72; Resp 18; Temp 97.6; Pulse Ox 97% ; jam1 15:39 Pain 9/10; mcp 15:40 BP 10 / ???; jam1 16:13 BP 144 / 82; Pulse 70; Resp 18; Temp 98.2; Pulse Ox 97% ; Pain 10/10; jam1 13:42 Body Mass Index 29.27 (92.53 kg, 177.80 cm) gr2 MDM: 14:48 IV Saline Lock ordered. cc10 14:49 Dilaudid - HYDROmorphone 0.5 mg IVP once ordered. cc10 14:49 Misc. Nursing Order ordered. cc10 14:50 CT ABD & PELVIS: IV Contrast Only Ordered. EDMS 16:06 Financial registration complete. zo 16:07 [facility] Payment Agreement was scanned into [employer] and attached to record. jp5 09/17 12:24 T-Sheet-- Draft Copy was scanned into [employer] and attached to record. gb Administered Medications: 09/16 15:09 Drug: Dilaudid - HYDROmorphone 0.5 mg [hydromorphone 1 mg/mL injection syringe (0.5 mcp mL)] Route: IVP; Site: left antecubital; 15:39 Follow up: Pain 04/19 Adult; Response: No significant change. [facility] Signatures: Dispatcher [employer] EDMS Radha Jenkins RN RN Juanita Muhammad, Aram Reg Sahil Rios Hannah, RN RN hs1 Sean Meyer, PA-C PA-C cc10 Katharine Johnson jp5 The chart was reviewed and I authenticate all verbal orders and agree with the evaluation and treatment provided.Attachments: 16:07 [facility] Payment Agreement jp5 09/17 12:24 T-Sheet-- Draft Copy gb Chart Complete MTDD
--- NOTE | 2016-09-18 17:17 | EDDOCDS ---
Physician Documentation [facility] Name: Dank Jaime Age: 41 yrs Sex: Male : 1975 Arrival Date: 09/16/2016 Time: 13:39 Bed I5 / M5 Private MD: No Pcp Disposition: 09/16/16 16:09 Discharged to Home/Self Care. Impression: Low back pain, Abdominal and pelvic pain - LLQ. - Condition is Stable. - Discharge Instructions: Back Pain, Adult. - Medication Reconciliation form. - Follow up: Emergency Department; When: As needed. Follow up: Private Physician; When: Call to arrange an appointment; Reason: Wound/Symptom Recheck, Recheck today's complaints, Worsening of conditions, Continuance of care. - Problem is an ongoing problem. - Symptoms have improved. Historical: - Allergies: no known allergies; - Home Meds: 1. none - PMHx: Kidney stones; - PSHx: removal of testicular mass; Ureteral Stent- Left; - Social history: Smoking status: Patient states was never smoker of tobacco. No barriers to communication noted, The patient speaks fluent Amharic, Speaks appropriately for age. - Family history: Not pertinent. - : The pt / caregiver states he / she is not on anticoagulants. Home medication list is obtained from the patient. - Exposure Risk Screening:: None identified. Vital Signs: 09/16 13:42 BP 136 / 74; Pulse 67; Resp 18 S; Temp 97.2(O); Pulse Ox 65% on R/A; Weight 92.53 kg / gr2 203.99 lbs (R); Height 5 ft. 10 in. (177.80 cm) (R); Pain 9/10; 15:37 BP 120 / 61; Pulse 72; Resp 18; Temp 97.6; Pulse Ox 97% ; jam1 15:39 Pain 9/10; mcp 15:40 BP 10 / ???; jam1 16:13 BP 144 / 82; Pulse 70; Resp 18; Temp 98.2; Pulse Ox 97% ; Pain 10/10; jam1 13:42 Body Mass Index 29.27 (92.53 kg, 177.80 cm) gr2 MDM: 14:48 IV Saline Lock ordered. cc10 14:49 Dilaudid - HYDROmorphone 0.5 mg IVP once ordered. cc10 14:49 Misc. Nursing Order ordered. cc10 14:50 CT ABD & PELVIS: IV Contrast Only Ordered. EDMS 16:06 Financial registration complete. zo 16:07 [facility] Payment Agreement was scanned into [employer] and attached to record. jp5 09/17 12:24 T-Sheet-- Draft Copy was scanned into [employer] and attached to record. gb Administered Medications: 09/16 15:09 Drug: Dilaudid - HYDROmorphone 0.5 mg [hydromorphone 1 mg/mL injection syringe (0.5 mcp mL)] Route: IVP; Site: left antecubital; 15:39 Follow up: Pain 04/19 Adult; Response: No significant change. [facility] Signatures: Dispatcher [employer] EDMS Radha Jenkins RN RN Juanita Muhammad, Aram Reg Sahil Rios Hannah, RN RN hs1 Sean Meyer, PA-C PA-C cc10 Katharine Johnson jp5 The chart was reviewed and I authenticate all verbal orders and agree with the evaluation and treatment provided.Attachments: 16:07 [facility] Payment Agreement jp5 09/17 12:24 T-Sheet-- Draft Copy gb Chart Complete MTDD
== END 2016-09-16 16:16 | disposition home or self-care (01) ==
LOC: M ED 13:39
DX: M54.5 Low back pain (principal); R10.32 Left lower quadrant pain; Z87.442 Personal history of urinary calculi
CPT/HCPCS: 74177; 96374; 99284; J1170; Q9967

== ENCOUNTER → 2016-09-16 | Outpatient (REF) | payer OTHER ==
[2016-09-16 13:03] LABS: BASO % 0.5 % (0.0-1.0); EOS # 0.4 K/mm3 (0.0-0.50); EOS % 5.1 % (0.0-3.0); LARGE UNSTAINED CELL # 0.1 K/mm3 (0.0-0.4); LARGE UNSTAINED CELL % 1.3 % (0.0-4.0); LYMPH % 27.9 % (24.0-44.0); MEAN CORPUSCULAR HEMOGLOBIN 29.8 pg (27.0-33.0); MEAN CORPUSCULAR HGB CONC 33.5 g/dl (32.0-36.5); MEAN CORPUSCULAR VOLUME 89.1 fl (80.0-96.0); MONO # 0.4 K/mm3 (0.0-0.8); MONO % 5.1 % (0.0-5.0); NEUTROPHILS # 4.2 K/mm3 (1.8-7.7); NEUTROPHILS % 60.1 % (36.0-66.0); PLATELET COUNT, AUTOMATED 295 k/mm3 (150-450); RED CELL DISTRIBUTION WIDTH 12.6 % (11.5-14.5)
[2016-09-16 13:30] LABS: ALBUMIN 4.2 GM/DL (3.2-5.2); ALKALINE PHOSPHATASE 68 U/L (45-117); ALT/SGPT 32 U/L (12-78); ANION GAP 8 MEQ/L (8-16); AST/SGOT 18 U/L (15-37); BILIRUBIN,TOTAL 0.3 MG/DL (0.2-1.0); BLOOD UREA NITROGEN 19 MG/DL (7-18); CALCIUM LEVEL 9.4 MG/DL (8.5-10.1); CARBON DIOXIDE LEVEL 30 MEQ/L (21-32); CHLORIDE LEVEL 105 MEQ/L (98-107); CREATININE FOR GFR 0.79 MG/DL (0.70-1.30); GLOMERULAR FILTRATION RATE > 60.0 (>60); GLUCOSE, FASTING 75 MG/DL (70-105); POTASSIUM SERUM 4.3 MEQ/L (3.5-5.1); SODIUM LEVEL 143 MEQ/L (136-145); TOTAL PROTEIN 7.7 GM/DL (6.4-8.2)
== END ==
LOC: M LAB REF 12:53
PROVIDERS: ATTEND Surgery
DX: R10.32 Left lower quadrant pain (principal)

== ENCOUNTER → 2017-06-25 | Outpatient (CLI) | payer OTHER ==
[~2017-06-25] MED LIST changes: -NORC7.5T PO; +NORC7.5T35 PO; +PYRI1TAB5 PO; -PYRI200T5 PO
--- NOTE | 2017-06-25 15:28 | REP ---
Clinical: Shortness of breath . Comparison: 10/12/2012 . Technique: PA and lateral. Findings: The mediastinum and cardiac silhouette are normal. The lung caldwell are clear and without acute consolidation, effusion, or pneumothorax. The skeletal structures are intact and normal. Impression: 1. No acute cardiopulmonary process. Signed by Swapnil Galloway MD 06/25/2017 03:20 P
== END ==
LOC: M WUC 14:50
PROVIDERS: ATTEND Physician Assistant
DX: R06.02 Shortness of breath (principal)

== ENCOUNTER → 2017-08-27 | Outpatient (CLI) | payer OTHER ==
[2017-08-27 16:58] LABS: BASO # 0.1 10^3/uL (0.0-0.2); BASO % 0.5 % (0.0-1.0); EOS # 0.1 10^3/uL (0.0-0.50); HEMATOCRIT 45.2 % (42.0-52.0); HEMOGLOBIN 15.1 g/dl (14.0-18.0); IMMATURE GRANULOCYTE % 0.3 % (0-0); LYMPH # 1.7 10^3/uL (1.5-4.5); LYMPH % 16.2 % (24.0-44.0); MEAN CORPUSCULAR HEMOGLOBIN 29.7 pg (27.0-33.0); MEAN CORPUSCULAR HGB CONC 33.4 g/dl (32.0-36.5); MEAN CORPUSCULAR VOLUME 88.8 fl (80.0-96.0); MONO % 9.2 % (0.0-5.0); NEUTROPHILS # 7.6 10^3/uL (1.8-7.7); NEUTROPHILS % 72.8 % (36.0-66.0); PLATELET COUNT, AUTOMATED 324 10^3/uL (150-450); RED BLOOD COUNT 5.09 10^6/uL (4.30-6.10); RED CELL DISTRIBUTION WIDTH 12.6 % (11.5-14.5); WHITE BLOOD COUNT 10.4 10^3/uL (4.0-10.0)
[2017-08-27 17:52] LABS: ERYTHROCYTE SEDIMENTATION RATE 31 mm/hr (0-15)
[2017-08-27 18:21] LABS: ALBUMIN 4.1 GM/DL (3.2-5.2); ALBUMIN/GLOBULIN RATIO 1.11 (1.00-1.93); ALKALINE PHOSPHATASE 71 U/L (45-117); ALT/SGPT 25 U/L (12-78); ANION GAP 5 MEQ/L (8-16); AST/SGOT 14 U/L (7-37); BILIRUBIN,TOTAL 0.4 MG/DL (0.2-1.0); BLOOD UREA NITROGEN 14 MG/DL (7-18); CALCIUM LEVEL 8.8 MG/DL (8.5-10.1); CARBON DIOXIDE LEVEL 31 MEQ/L (21-32); CHLORIDE LEVEL 103 MEQ/L (98-107); CREATININE FOR GFR 0.87 MG/DL (0.70-1.30); GLOMERULAR FILTRATION RATE > 60.0 (>60); GLUCOSE, FASTING 91 MG/DL (70-105); POTASSIUM SERUM 4.6 MEQ/L (3.5-5.1); SODIUM LEVEL 139 MEQ/L (136-145); TOTAL PROTEIN 7.8 GM/DL (6.4-8.2)
== END ==
LOC: M WUC 10:59
DX: J06.9 Acute upper respiratory infection, unspecified (principal)
CPT/HCPCS: 80053

== ENCOUNTER 2017-09-18 20:56 | Emergency (ER) | payer OTHER ==
[2017-09-19 00:46] LABS: BASO # 0.1 10^3/uL (0.0-0.2); BASO % 0.6 % (0.0-1.0); EOS # 0.3 10^3/uL (0.0-0.50); EOS % 3.1 % (0.0-3.0); HEMATOCRIT 40.5 % (42.0-52.0); HEMOGLOBIN 13.9 g/dl (14.0-18.0); IMMATURE GRANULOCYTE % 0.6 % (0-3.0); LYMPH # 3.2 10^3/uL (1.5-4.5); LYMPH % 37.3 % (24.0-44.0); MEAN CORPUSCULAR HEMOGLOBIN 29.3 pg (27.0-33.0); MEAN CORPUSCULAR HGB CONC 34.3 g/dl (32.0-36.5); MEAN CORPUSCULAR VOLUME 85.3 fl (80.0-96.0); MONO # 0.7 10^3/uL (0.0-0.8); MONO % 7.8 % (0.0-5.0); NEUTROPHILS # 4.3 10^3/uL (1.8-7.7); NEUTROPHILS % 50.6 % (36.0-66.0); PLATELET COUNT, AUTOMATED 344 10^3/uL (150-450); RED BLOOD COUNT 4.75 10^6/uL (4.30-6.10); RED CELL DISTRIBUTION WIDTH 12.2 % (11.5-14.5); WHITE BLOOD COUNT 8.5 10^3/uL (4.0-10.0)
[2017-09-19 00:53] LABS: ALBUMIN 3.6 GM/DL (3.2-5.2); ALBUMIN/GLOBULIN RATIO 0.92 (1.00-1.93); ALKALINE PHOSPHATASE 66 U/L (45-117); ALT/SGPT 28 U/L (12-78); ANION GAP 6 MEQ/L (8-16); AST/SGOT 14 U/L (7-37); BILIRUBIN,TOTAL 0.5 MG/DL (0.2-1.0); BLOOD UREA NITROGEN 18 MG/DL (7-18); CALCIUM LEVEL 8.8 MG/DL (8.5-10.1); CARBON DIOXIDE LEVEL 28 MEQ/L (21-32); CHLORIDE LEVEL 105 MEQ/L (98-107); CPK CREATINE PHOSPHOKINASE 189 U/L (39-308); CREATININE FOR GFR 0.77 MG/DL (0.70-1.30); GLOMERULAR FILTRATION RATE > 60.0 (>60); GLUCOSE, FASTING 86 MG/DL (70-100); POTASSIUM SERUM 3.7 MEQ/L (3.5-5.1); SODIUM LEVEL 139 MEQ/L (136-145); TOTAL PROTEIN 7.5 GM/DL (6.4-8.2); TROPONIN I < 0.02 NG/ML (< 0.10)
[2017-09-19 00:58] LABS: CK-MB VALUE MASS 2.9 NG/ML (0.0-3.6); MB/CK RELATIVE INDEX 1.53 (< OR =4)
[2017-09-19 01:02] LABS: INFLUENZA A AMPLIFICATION NEGATIVE (NEGATIVE); INFLUENZA B AMPLIFICATION NEGATIVE (NEGATIVE)
[2017-09-19] MEDS: NS 1,000 ML IV ×2 (01:04→01:45)
[2017-09-19] MEDS: MECLIZINE 25 MG TABLET PO (01:04)
== END 2017-09-19 03:37 | disposition home or self-care (01) ==
LOC: M ED 09-19 03:37
DX: E86.9 Volume depletion, unspecified (principal); R00.1 Bradycardia, unspecified; Z87.442 Personal history of urinary calculi; K21.9 Gastro-esophageal reflux disease without esophagitis
CPT/HCPCS: 71046

== ENCOUNTER → 2018-05-05 | Outpatient (CLI) | payer OTHER | LOC: M WUC 11:10 | DX: M50.223 Other cervical disc displacement at C6-C7 level (principal); M50.222 Other cervical disc displacement at C5-C6 level; M50.221 Other cervical disc displacement at C4-C5 level; M50.33 Other cervical disc degeneration, cervicothoracic region | CPT/HCPCS: 72052 ==

== ENCOUNTER → 2018-05-17 | Outpatient (REF) | payer OTHER ==
[2018-05-17 19:12] LABS: HEMATOCRIT 45.8 % (42.0-52.0); HEMOGLOBIN 15.6 g/dl (13.5-17.5); MEAN CORPUSCULAR HEMOGLOBIN 30.3 pg (27.0-33.0); MEAN CORPUSCULAR HGB CONC 34.1 g/dl (32.0-36.5); MEAN CORPUSCULAR VOLUME 88.9 fl (80.0-96.0); PLATELET COUNT, AUTOMATED 294 10^3/uL (150-450); RED BLOOD COUNT 5.15 10^6/uL (4.30-6.10); RED CELL DISTRIBUTION WIDTH 12.5 % (11.5-14.5); WHITE BLOOD COUNT 7.9 10^3/uL (4.0-10.0)
[2018-05-17 19:30] LABS: ESTIMATED AVERAGE GLUCOSE 108 MG/DL (60-110); HEMOGLOBIN A1c 5.4 %
[2018-05-17 19:56] LABS: ALBUMIN 4.3 GM/DL (3.2-5.2); ALBUMIN/GLOBULIN RATIO 1.34 (1.00-1.93); ALKALINE PHOSPHATASE 62 U/L (45-117); ALT/SGPT 39 U/L (12-78); ANION GAP 10 MEQ/L (8-16); AST/SGOT 17 U/L (7-37); BILIRUBIN,TOTAL 0.4 MG/DL (0.2-1.0); BLOOD UREA NITROGEN 15 MG/DL (7-18); CARBON DIOXIDE LEVEL 29 MEQ/L (21-32); CHLORIDE LEVEL 102 MEQ/L (98-107); CHOLESTEROL LEVEL 237 MG/DL (<200); CHOLESTEROL RISK RATIO 4.232 (<5); CREATININE FOR GFR 0.84 MG/DL (0.70-1.30); GLOMERULAR FILTRATION RATE > 60.0 (>60); GLUCOSE, FASTING 60 MG/DL (70-100); HDL CHOLESTEROL 56 MG/DL (>40); LDL CHOLESTEROL 146 MG/DL (<100); NON-HDL-C 181 MG/DL; POTASSIUM SERUM 3.9 MEQ/L (3.5-5.1); SODIUM LEVEL 141 MEQ/L (136-145); TOTAL PROTEIN 7.5 GM/DL (6.4-8.2); TRIGLYCERIDES LEVEL 175 MG/DL (<150)
== END ==
LOC: M SFHCPLAZ 14:56
DX: R51 Headache (principal)

== ENCOUNTER → 2018-05-20 | Outpatient (CLI) | payer OTHER | LOC: M RAD 13:30 | DX: R51 Headache (principal) | CPT/HCPCS: 70551 ==

== ENCOUNTER → 2018-08-18 | Outpatient (CLI) | payer OTHER ==
--- NOTE | 2018-08-19 08:30 | REP ---
MRI CERVICAL SPINE WITHOUT CONTRAST: HISTORY: Facet arthritis. COMPARISON: 08/27/2011. The examination is limited secondary to motion. A disc bulge is present at the C3-4 level. There is minimal effacement of the thecal sac without spinal cord compression. Uncinate process hypertrophy is present on the left. This produces minimal narrowing of the left C3 neural foramen. The right C3 neural foramen is patent. A disc bulge and small right paracentral disc protrusion are present at the C4-5 level. There is moderate effacement of the thecal sac without spinal cord compression. The C4 neural foramina are patent. A disc bulge is present at the C5-6 level. There is mild effacement of the thecal sac without spinal cord compression. The C5 neural foramina are patent. A disc bulge and small disc protrusion central and eccentric to the left are present at the C6-7 level. There is minimal spinal cord compression. Uncinate process hypertrophy is present on the left. This produces minimal narrowing of the left C6 neural foramen. The right C6 neural foramen is patent. A small left paracentral and intraforaminal disc protrusion is present at the C7-T1 level. There is minimal effacement of the thecal sac without spinal cord compression. There is minimal narrowing of the left C7 neural foramen. The right C7 neural foramen is patent. There is no other disc bulge or herniation. The remaining neural foramina are patent. The spinal cord is normal in signal intensity. The C4-5 and C6-7 intervertebral discs are decreased in height consistent with disc degeneration. Increased signal intensity on T2-weighted images is present in the endplates of the C6 and 7 vertebral bodies. This represents degenerative change. A hemangioma is present in the T1 vertebral body. IMPRESSION: There is cervical spondylosis at the C3-4 through C7-T1 levels most significant at the C6-7 level where there is minimal spinal cord compression. The findings at the C3-4 level, disc protrusion at the C4-5 level, disc protrusion, spinal cord compression and foraminal narrowing at the C6-7 level and disc protrusion and foraminal narrowing at the C7-T1 level are new. Electronically Signed by Dick Beck MD 08/19/2018 08:45 A
== END ==
LOC: M RAD 17:11
PROVIDERS: ATTEND Student in an Organized Health Care Education/Training Program
DX: M50.221 Other cervical disc displacement at C4-C5 level (principal); M50.223 Other cervical disc displacement at C6-C7 level; M50.323 Other cervical disc degeneration at C6-C7 level; M47.812 Spondylosis without myelopathy or radiculopathy, cervical region

== ENCOUNTER → 2019-01-04 | Outpatient (CLI) | payer OTHER ==
[~2019-01-04] MED LIST changes: -/CELE20CA OR; +CELE1CAP4 OR; +NORC1TAB8 PO; -NORC7.5T35 PO
--- NOTE | 2019-01-04 16:47 | REP ---
RIGHT KNEE SERIES, FIVE VIEWS: Five views of the right knee were performed. There is no acute fracture or dislocation. There is minimal medial joint space narrowing. There is minimal spurring of the tibial spines. A tiny spur is seen in the lateral patellar facet. There is slight narrowing of the lateral patellofemoral compartment, with minor subchondral sclerosis. No other significant findings are seen. IMPRESSION: Very mild degenerative changes. Electronically Signed by Robert Elizondo MD 01/04/2019 04:49 P
--- NOTE | 2019-01-04 16:48 | REP ---
RIGHT FOOT SERIES: Four views of the right foot are performed. There is no acute fracture or dislocation. Calcaneus appears unremarkable. There is slight narrowing of the 1st metatarsal phalangeal joint. No other significant findings are seen. IMPRESSION: Minimal degenerative changes 1st metatarsal phalangeal joint. Electronically Signed by Robert Elizondo MD 01/04/2019 05:09 P
[2019-01-04 20:16] LABS: BASO # 0.1 10^3/uL (0.0-0.2); BASO % 0.6 % (0.0-1.0); EOS # 0.4 10^3/uL (0.0-0.50); EOS % 4.3 % (0.0-3.0); HEMATOCRIT 45.8 % (42.0-52.0); HEMOGLOBIN 15.6 g/dl (13.5-17.5); LYMPH # 3.6 10^3/uL (1.5-4.5); LYMPH % 38.4 % (24.0-44.0); MEAN CORPUSCULAR HEMOGLOBIN 30.5 pg (27.0-33.0); MEAN CORPUSCULAR HGB CONC 34.1 g/dl (32.0-36.5); MEAN CORPUSCULAR VOLUME 89.6 fl (80.0-96.0); MONO # 0.8 10^3/uL (0.0-0.8); MONO % 8.7 % (0.0-5.0); NEUTROPHILS # 4.5 10^3/uL (1.8-7.7); NEUTROPHILS % 47.8 % (36.0-66.0); PLATELET COUNT, AUTOMATED 328 10^3/uL (150-450); RED BLOOD COUNT 5.11 10^6/uL (4.30-6.10); WHITE BLOOD COUNT 9.4 10^3/uL (4.0-10.0)
[2019-01-04 20:26] LABS: BLOOD UREA NITROGEN 17 MG/DL (7-18); CALCIUM LEVEL 8.7 MG/DL (8.5-10.1); CARBON DIOXIDE LEVEL 26 MEQ/L (21-32); CHLORIDE LEVEL 105 MEQ/L (98-107); CREATININE FOR GFR 0.87 MG/DL (0.70-1.30); GLOMERULAR FILTRATION RATE > 60.0 (>60); GLUCOSE, FASTING 97 MG/DL (70-100); POTASSIUM SERUM 3.8 MEQ/L (3.5-5.1); SODIUM LEVEL 138 MEQ/L (136-145)
[2019-01-04 20:27] LABS: ALBUMIN 4.2 GM/DL (3.2-5.2); ALT/SGPT 37 U/L (12-78); BILIRUBIN,TOTAL 0.2 MG/DL (0.2-1.0); FREE T4 0.71 NG/DL (0.76-1.46); TOTAL PROTEIN 7.3 GM/DL (6.4-8.2)
[2019-01-04 21:13] LABS: ERYTHROCYTE SEDIMENTATION RATE 5 mm/hr (0-15)
[2019-01-06 14:19] LABS: IgG P18 AB Absent (.); IgG P23 AB Absent (.); IgG P28 AB Absent (.); IgG P30 AB Absent (.); IgG P39 AB Present (.); IgG P41 AB Absent (.); IgG P45 AB Absent (.); IgG P66 AB Absent (.); IgG P93 AB Absent (.); IgM P23 AB Present (.); IgM P39 AB Present (.); IgM P41 AB Present (.); LYME IgG WB INTERPRETATION Negative (.); LYME IgM WB INTERPRETATION Positive (.)
== END ==
LOC: M WUC 16:01
PROVIDERS: ATTEND Physician Assistant
DX: M25.561 Pain in right knee (principal); M19.071 Primary osteoarthritis, right ankle and foot

== ENCOUNTER 2019-02-11 21:57 | Emergency (ER) | payer OTHER ==
[~2019-02-11] VITALS: Ht 177.8 cm; Wt 97.5 kg
[2019-02-11 22:46] LABS: BASO # 0.1 10^3/uL (0.0-0.2); BASO % 0.7 % (0.0-1.0); EOS # 0.5 10^3/uL (0.0-0.50); EOS % 5.3 % (0.0-3.0); HEMATOCRIT 43.3 % (42.0-52.0); HEMOGLOBIN 14.9 g/dl (13.5-17.5); LYMPH # 3.5 10^3/uL (1.5-4.5); LYMPH % 41.2 % (24.0-44.0); MEAN CORPUSCULAR HEMOGLOBIN 30.4 pg (27.0-33.0); MEAN CORPUSCULAR HGB CONC 34.4 g/dl (32.0-36.5); MEAN CORPUSCULAR VOLUME 88.4 fl (80.0-96.0); MONO # 0.6 10^3/uL (0.0-0.8); MONO % 7.4 % (0.0-5.0); NEUTROPHILS # 3.8 10^3/uL (1.8-7.7); NEUTROPHILS % 45.2 % (36.0-66.0); PLATELET COUNT, AUTOMATED 312 10^3/uL (150-450); WHITE BLOOD COUNT 8.5 10^3/uL (4.0-10.0)
[2019-02-11 23:24] LABS: ALT/SGPT 36 U/L (12-78); AMYLASE 49 U/L (25-115); BILIRUBIN,DIRECT < 0.1 MG/DL (0.0-0.2); BILIRUBIN,TOTAL 0.3 MG/DL (0.2-1.0); BLOOD UREA NITROGEN 17 MG/DL (7-18); CARBON DIOXIDE LEVEL 28 MEQ/L (21-32); CHLORIDE LEVEL 107 MEQ/L (98-107); CREATININE FOR GFR 1.08 MG/DL (0.70-1.30); GLOMERULAR FILTRATION RATE > 60.0 (>60); GLUCOSE, FASTING 98 MG/DL (70-100); LIPASE 113 U/L (73-393); POTASSIUM SERUM 4.1 MEQ/L (3.5-5.1); SODIUM LEVEL 142 MEQ/L (136-145); TOTAL PROTEIN 7.6 GM/DL (6.4-8.2)
[2019-02-11] MEDS ORDERED: NS 1,000 ML IV ONE (23:30)
[2019-02-11] MEDS ORDERED: KETOROLAC 30 MG/ML VIAL (J1885) IV ONE (23:30)
[2019-02-11] MEDS ORDERED: ONDANSETRON 4MG/2ML VIAL (J2405) IV ONE (23:30)
--- NOTE | 2019-02-12 00:30 | REPVR ---
EXAM: CT Abdomen and Pelvis Without Contrast EXAM DATE/TIME: 02/11/2019 11:30 PM CLINICAL HISTORY: 43 years old, male; Abdominal pain; Flank; Right; Additional Info: right flank pain, HX stones TECHNIQUE: Imaging protocol: Axial computed tomography images of the abdomen and pelvis without contrast. Coronal and sagittal reformatted images were created and reviewed. Radiation optimization: All CT scans at this facility use at least one of these dose optimization techniques: automated exposure control; mA and/or kV adjustment per patient size (includes targeted exams where dose is matched to clinical indication); or iterative reconstruction. COMPARISON: CT ABD PELVIS W/O CONTRAST 07/22/2016 2:19 PM FINDINGS: Liver: Normal. No mass. Gallbladder and bile ducts: Normal. No calcified stones. No ductal dilation. Pancreas: Normal. No ductal dilation. Spleen: Normal. No splenomegaly. Adrenals: Normal. No mass. Kidneys and ureters: Normal. No hydronephrosis. Stomach and bowel: Mild sigmoid diverticulosis without diverticulitis. No abnormal bowel dilatation. No abnormal bowel wall thickening. Mild stool in the colon. Appendix: Appendix is normal. Intraperitoneal space: Normal. No free air. No significant fluid collection. Vasculature: Normal. No abdominal aortic aneurysm. Lymph nodes: Normal. No enlarged lymph nodes. Bladder: Unremarkable as visualized. Reproductive: Prostate is normal in size. Bones/joints: Mild degenerative spine. No acute fracture. Benign bone island in the intertrochanteric region of the left femur. Soft tissues: Small umbilical hernia containing fat. There is no evidence of strangulation. IMPRESSION: 1. No renal stones or hydronephrosis. 2. No acute findings to suggest source of acute right flank pain. 3. Additional findings as described. Electronically signed by: Maritza Elder On 02/12/2019 00:30:06 AM
[2019-02-12 01:11] VITALS: BP 142/70
== END 2019-02-12 01:17 | disposition home or self-care (01) ==
LOC: M ED 21:57
DX: R10.9 Unspecified abdominal pain (principal); R11.0 Nausea; K21.9 Gastro-esophageal reflux disease without esophagitis; Z87.442 Personal history of urinary calculi
CPT/HCPCS: 74176; 80048; 80076; 81001; 82150; 83690; 85025; 96374; 96375; 99284; J1885; J2405

== ENCOUNTER 2019-07-05 22:07 | Emergency (ER) | payer OTHER ==
[~2019-07-05] VITALS: Ht 177.8 cm; Wt 88.8 kg
[2019-07-05] MEDS ORDERED: MECLIZINE 25 MG TABLET PO ONE (23:00)
[2019-07-05] MEDS ORDERED: NS 1,000 ML IV ONE (23:00)
[2019-07-05 23:07] LABS: BASO % 0.5 % (0.0-1.0); EOS # 0.3 10^3/uL (0.0-0.5); EOS % 3.3 % (0.0-3.0); HEMATOCRIT 44.8 % (42.0-52.0); HEMOGLOBIN 15.2 g/dl (13.5-17.5); LYMPH # 3.1 10^3/uL (1.5-5.0); LYMPH % 39.4 % (24.0-44.0); MEAN CORPUSCULAR HEMOGLOBIN 29.9 pg (27.0-33.0); MEAN CORPUSCULAR HGB CONC 33.9 g/dl (32.0-36.5); MEAN CORPUSCULAR VOLUME 88.2 fl (80.0-96.0); MONO # 0.5 10^3/uL (0.0-0.8); MONO % 6.5 % (0.0-5.0); PLATELET COUNT, AUTOMATED 309 10^3/uL (150-450); RED BLOOD COUNT 5.08 10^6/uL (4.30-6.10)
[2019-07-05 23:10] LABS: INR 0.94; PROTHROMBIN TIME 12.2 SECONDS (11.8-14.0)
--- NOTE | 2019-07-05 23:12 | REPVR ---
PROCEDURE INFORMATION: Exam: CT Head Without Contrast Exam date and time: 07/05/2019 11:05 PM Age: 43 years old Clinical history: Altered mental status/memory loss; Additional info: CVA - nursing interventions must not delay CT TECHNIQUE: Imaging protocol: Computed tomography of the head without contrast. Radiation optimization: All CT scans at this facility use at least one of these dose optimization techniques: automated exposure control; mA and/or kV adjustment per patient size (includes targeted exams where dose is matched to clinical indication); or iterative reconstruction. Other technique: STROKE PROTOCOL was implemented. COMPARISON: CT Head without contrast 09/18/2017 11:19 PM FINDINGS: Brain: Normal. No hemorrhage. Unremarkable white matter. No mass effect. Ventricles: Normal. No ventriculomegaly. Bones/joints: Unremarkable. No acute fracture. Sinuses: Visualized sinuses are unremarkable. No fluid levels. Mastoid air cells: Visualized mastoid air cells are well aerated. Soft tissues: Unremarkable. IMPRESSION: No acute intracranial abnormality. ASSESSMENT: ASPECTS ([place] Stroke Program Early CT Score) is 10. Electronically signed by: Miguelito Bonner On 07/05/2019 23:12:14 PM
[2019-07-05 23:19] LABS: CK-MB VALUE MASS 3.6 NG/ML (<3.6); CPK CREATINE PHOSPHOKINASE 288 U/L (39-308); MB/CK RELATIVE INDEX 1.25 (< OR =4); TROPONIN I < 0.02 NG/ML (< 0.10)
[2019-07-05 23:29] LABS: HEMOGLOBIN A1c 5.6 %
[2019-07-06 00:07] LABS: ETHYL ALCOHOL (ETHANOL) < 0.003 % (0.000-0.010)
[2019-07-06 00:58] LABS: AMPHETAMINES LEVEL URINE NEGATIVE (NEGATIVE); BARBITURATES URINE NEGATIVE (NEGATIVE); BENZODIAZEPINES URINE NEGATIVE (NEGATIVE); CANNABINOIDS URINE NEGATIVE (NEGATIVE); COCAINE METABOLITE URINE NEGATIVE (NEGATIVE); METHADONE URINE NEGATIVE (NEGATIVE); OPIATES URINE NEGATIVE (NEGATIVE); PHENCYCLIDINE URINE NEGATIVE (NEGATIVE)
[2019-07-06] MEDS ORDERED: MECL-68 PO (02:14)
[2019-07-06] MEDS ORDERED: FLON1SPR NARES (02:14)
[2019-07-06 02:32] VITALS: BP 121/63
--- NOTE | 2019-07-06 07:41 | REP ---
Clinical: Acute cerebrovascular accident . Comparison: 06/25/2017 . Findings: The mediastinum and cardiac silhouette are stable and within normal limits for portable technique. The lung caldwell are clear without acute consolidation, effusion, or pneumothorax. Skeletal structures are intact. Impression: No acute cardiopulmonary process appreciated. Electronically Signed by Swapnil Galloway MD 07/06/2019 07:33 A
--- NOTE | 2019-07-06 08:59 | ECGEPIP ---
[facility] - ED Test Date: 2019-07-05 Pat Name: HIRAL ECHEVARRIA Department: Room: - Gender: Male Chief Crna: TIFFANI : 1975 Requested By: JACLYN Navarrete Order Number: [id number] Reading MD: Julio César Jordan Measurements Intervals [place] Rate: 84 P: 54 MO: 116 QRS: 43 QRSD: 96 T: 46 QT: 368 QTc: 435 Interpretive Statements SINUS RHYTHM WITH SHORT MO INTERVAL NSTTW ABNORMALITIES SIMILAR TO 09/19/17 Electronically Signed on 07-06-2019 8:59:39 EST by Julio César Jordan
== END 2019-07-06 02:34 | disposition home or self-care (01) ==
LOC: M ED 22:07
DX: H83.03 Labyrinthitis, bilateral (principal); R42 Dizziness and giddiness; G89.29 Other chronic pain; M54.5 Low back pain
CPT/HCPCS: 70450; 71045; 80047; 80307; 81001; 82550; 82553; 83036; 85025; 85610; 85730; 86850; 86900; 86901; 93005; 93041; 94760; 96360; 96361; 99284; G0480

== ENCOUNTER → 2019-08-05 | Outpatient (CLI) | payer OTHER ==
[~2019-08-05] MED LIST changes: +FLON1SPR NARES; +MECL-68 PO
--- NOTE | 2019-08-05 11:53 | REP ---
BILATERAL POPLITEAL ULTRASOUND: Real-time sonographic evaluation of popliteal regions performed. Complex popliteal cyst is seen on the right measuring 5.2 x 1.8 x 4.0 cm. Complex popliteal cyst is seen on the left 5.8 x 2.0 x 4.5 cm. IMPRESSION: Complex popliteal cysts seen bilaterally. Electronically Signed by Robert Elizondo MD 08/05/2019 05:12 P
== END ==
LOC: M RAD 10:20
PROVIDERS: ATTEND Family Medicine
DX: M71.20 Synovial cyst of popliteal space [Baker], unspecified knee (principal)

== ENCOUNTER → 2019-08-30 | Outpatient (REF) | payer OTHER ==
[~2019-08-30] MED LIST changes: -MECL-68 PO; +MECL1TAB31 PO
[2019-08-30 19:58] LABS: BASO # 0.1 10^3/uL (0.0-0.2); BASO % 0.6 % (0.0-1.0); EOS # 0.3 10^3/uL (0.0-0.5); EOS % 3.5 % (0.0-3.0); HEMATOCRIT 47.3 % (42.0-52.0); HEMOGLOBIN 15.4 g/dl (13.5-17.5); LYMPH # 2.7 10^3/uL (1.5-5.0); LYMPH % 32.3 % (24.0-44.0); MEAN CORPUSCULAR HEMOGLOBIN 29.2 pg (27.0-33.0); MEAN CORPUSCULAR HGB CONC 32.6 g/dl (32.0-36.5); MEAN CORPUSCULAR VOLUME 89.6 fl (80.0-96.0); MONO # 0.6 10^3/uL (0.0-0.8); MONO % 7.5 % (0.0-5.0); NEUTROPHILS # 4.6 10^3/uL (1.5-8.5); NEUTROPHILS % 55.9 % (36.0-66.0); PLATELET COUNT, AUTOMATED 335 10^3/uL (150-450); RED BLOOD COUNT 5.28 10^6/uL (4.30-6.10); WHITE BLOOD COUNT 8.2 10^3/uL (4.0-10.0)
[2019-08-30 20:26] LABS: FREE T4 0.81 NG/DL (0.76-1.46); THYROID STIMULATING HORMONE 1.55 uIU/ML (0.358-3.740)
[2019-08-30 20:27] LABS: FOLATE 20.3 NG/ML (>5.4)
== END ==
LOC: M SFHCPLAZ 14:23
PROVIDERS: ATTEND Family Medicine
DX: L63.9 Alopecia areata, unspecified (principal)

== ENCOUNTER → 2019-08-30 | Outpatient (CLI) | payer OTHER ==
--- NOTE | 2019-08-31 02:21 | REPPI ---
Clinical: Disc herniation. Technique: AP, lateral, bilateral oblique, flexion/extension and coned-down views of the lumbosacral spine. Findings: Frontal view demonstrates mild levoconvex scoliosis centered at L2-3. Lordosis maintained. Mild/moderate multilevel degenerative changes include endplate sclerosis with marginal spurring and disc space narrowing primarily involving L5-S1, L4-5, L1-2. Hypertrophic facet changes and L4-5 and L5-S1 are also suggested and spondylolysis cannot be excluded. No acute fracture / compression injury or subluxation. Impression: Moderate multilevel degenerative spondylosis. Electronically Signed by Swapnil Galloway MD 08/31/2019 02:12 A
== END ==
LOC: M PLAIMG 14:51
PROVIDERS: ATTEND Student in an Organized Health Care Education/Training Program
DX: M51.36 Other intervertebral disc degeneration, lumbar region (principal); M51.37 Other intervertebral disc degeneration, lumbosacral region

== ENCOUNTER → 2019-09-07 | Outpatient (REF) | payer OTHER ==
[2019-09-07 13:56] LABS: ALBUMIN 3.9 GM/DL (3.2-5.2); ALT/SGPT 29 U/L (12-78); BILIRUBIN,TOTAL 0.4 MG/DL (0.2-1.0); BLOOD UREA NITROGEN 20 MG/DL (7-18); C REACTIVE PROTEIN QUANTITATIV < 0.30 MG/DL (0.00-0.30); CALCIUM LEVEL 8.7 MG/DL (8.5-10.1); CARBON DIOXIDE LEVEL 30 MEQ/L (21-32); CHLORIDE LEVEL 106 MEQ/L (98-107); CREATININE FOR GFR 0.91 MG/DL (0.70-1.30); FERRITIN 392 NG/ML (26-388); GLOMERULAR FILTRATION RATE > 60.0 (>60); GLUCOSE, FASTING 86 MG/DL (70-100); IRON (FE) 125 UG/DL (65-175); MAGNESIUM LEVEL 2.3 MG/DL (1.8-2.4); PERCENT SATURATION 40.2 % (19.7-50.0); POTASSIUM SERUM 4.3 MEQ/L (3.5-5.1); RHEUMATOID FACTOR QUANT < 10.0 IU/ML (<15.0); SODIUM LEVEL 140 MEQ/L (136-145); TOTAL IRON BINDING CAPACITY 311 UG/DL (250-450)
[2019-09-07 14:42] LABS: HIV 1&2 SCREEN CENTAUR NEGATIVE (NEGATIVE)
[2019-09-09 00:08] LABS: ANTINUCLEAR ANTIBODIES DIRECT Negative (Negative); CYCLIC CITRULLINATED PEPTIDE 14 units (0-19); Lyme Disease IgG/IgM Antibodie <0.91 ISR (0.00-0.90); Lyme Disease IgM Ab Quantitati <0.80 index (0.00-0.79)
== END ==
LOC: M SFHCPLAZ 10:48
PROVIDERS: ATTEND Family Medicine
DX: M25.561 Pain in right knee (principal); M25.562 Pain in left knee

== ENCOUNTER 2019-10-24 21:26 | Emergency (ER) | payer OTHER ==
[~2019-10-24] VITALS: Ht 177.8 cm; Wt 88.2 kg
[2019-10-24 21:58] LABS: HEMATOCRIT 43.8 % (42.0-52.0); HEMOGLOBIN 15.2 g/dl (13.5-17.5); MEAN CORPUSCULAR HEMOGLOBIN 29.8 pg (27.0-33.0); MEAN CORPUSCULAR HGB CONC 34.7 g/dl (32.0-36.5); MEAN CORPUSCULAR VOLUME 85.9 fl (80.0-96.0); WHITE BLOOD COUNT 8.4 10^3/uL (4.0-10.0)
[2019-10-24 21:59] LABS: BASO % 0.5 % (0.0-1.0); EOS # 0.3 10^3/uL (0.0-0.5); EOS % 3.7 % (0.0-3.0); LYMPH # 3.4 10^3/uL (1.5-5.0); LYMPH % 40.7 % (24.0-44.0); MONO # 0.6 10^3/uL (0.0-0.8); MONO % 7.6 % (0.0-5.0); NEUTROPHILS % 47.3 % (36.0-66.0); PLATELET COUNT, AUTOMATED 346 10^3/uL (150-450)
[2019-10-24 22:26] LABS: ALBUMIN 4.1 GM/DL (3.2-5.2); ALT/SGPT 27 U/L (12-78); BILIRUBIN,TOTAL 0.3 MG/DL (0.2-1.0); BLOOD UREA NITROGEN 13 MG/DL (7-18); CALCIUM LEVEL 8.5 MG/DL (8.5-10.1); CARBON DIOXIDE LEVEL 29 MEQ/L (21-32); CHLORIDE LEVEL 104 MEQ/L (98-107); CK-MB VALUE MASS 2.9 NG/ML (<3.6); CPK CREATINE PHOSPHOKINASE 267 U/L (39-308); CREATININE FOR GFR 0.87 MG/DL (0.70-1.30); GLOMERULAR FILTRATION RATE > 60.0 (>60); GLUCOSE, FASTING 92 MG/DL (70-100); MB/CK RELATIVE INDEX 1.09 (< OR =4); POTASSIUM SERUM 3.7 MEQ/L (3.5-5.1); SODIUM LEVEL 140 MEQ/L (136-145); TOTAL PROTEIN 7.4 GM/DL (6.4-8.2); TROPONIN I < 0.02 NG/ML (< 0.10)
[2019-10-24] MEDS ORDERED: NS 1,000 ML IV ONE (22:30)
--- NOTE | 2019-10-24 22:46 | REPVR ---
PROCEDURE INFORMATION: Exam: CT Head Without Contrast Exam date and time: 10/24/2019 10:42 PM Age: 44 years old Clinical indication: Pain; Headache; Additional info: Blurry vision TECHNIQUE: Imaging protocol: Computed tomography of the head without contrast. Radiation optimization: All CT scans at this facility use at least one of these dose optimization techniques: automated exposure control; mA and/or kV adjustment per patient size (includes targeted exams where dose is matched to clinical indication); or iterative reconstruction. COMPARISON: CT Head without contrast 07/05/2019 11:03 PM FINDINGS: Brain: Normal. No hemorrhage. Unremarkable white matter. No mass effect. Ventricles: Normal. No ventriculomegaly. Bones/joints: Unremarkable. No acute fracture. Sinuses: Visualized sinuses are unremarkable. No fluid levels. Mastoid air cells: Visualized mastoid air cells are well aerated. Soft tissues: Unremarkable. IMPRESSION: No acute intracranial abnormality. Electronically signed by: Chau Elder On 10/24/2019 22:45:44 PM
[2019-10-24 22:58] LABS: APPEARANCE, URINE CLEAR (CLEAR); BACTERIA, URINE AUTO NEGATIVE (NEGATIVE); BILIRUBIN, URINE AUTO NEGATIVE (NEGATIVE); BLOOD, URINE BLOOD NEGATIVE (NEGATIVE); COLOR, URINE YELLOW (YELLOW); GLUCOSE, URINE (UA) AUTO NEGATIVE (NEGATIVE); KETONE, URINE AUTO NEGATIVE (NEGATIVE); LEUKOCYTE ESTERASE, URINE AUTO NEGATIVE (NEGATIVE); NITRITE, URINE AUTO NEGATIVE (NEGATIVE); PROTEIN, URINE AUTO NEGATIVE (NEGATIVE); RBC, URINE AUTO 0 /HPF (0-3); SQUAMOUS EPITHELIAL CELL UR AU 0 /HPF (0-6); UROBILINOGEN, URINE AUTO 0.2 mg/dL (0.0-2.0); WBC, URINE AUTO 0 /HPF (0-3)
[2019-10-24 23:20] LABS: AMPHETAMINES LEVEL URINE NEGATIVE (NEGATIVE); BARBITURATES URINE NEGATIVE (NEGATIVE); BENZODIAZEPINES URINE NEGATIVE (NEGATIVE); CANNABINOIDS URINE NEGATIVE (NEGATIVE); COCAINE METABOLITE URINE NEGATIVE (NEGATIVE); METHADONE URINE NEGATIVE (NEGATIVE); OPIATES URINE NEGATIVE (NEGATIVE); PHENCYCLIDINE URINE NEGATIVE (NEGATIVE)
[2019-10-25] MEDS ORDERED: KETOROLAC 30 MG/ML VIAL (J1885) IV ONE (00:45)
[2019-10-25 00:55] VITALS: BP 115/56
--- NOTE | 2019-10-25 20:10 | ECGEPIP ---
[facility] - ED Test Date: 2019-10-24 Pat Name: HIRAL ECHEVARRIA Department: Room: - Gender: Male Seo Manager: cheryl : 1975 Requested By: JACLYN Navarrete Order Number: [id number] Reading MD: Gayle Marshall Measurements Intervals [place] Rate: 62 P: 46 MD: 141 QRS: -5 QRSD: 96 T: 25 QT: 411 QTc: 418 Interpretive Statements SINUS RHYTHM DECREASED RATE 07/05/19 Electronically Signed on 10-25-2019 20:09:57 EDT by Gayle Marshall
== END 2019-10-25 01:02 | disposition home or self-care (01) ==
LOC: M ED 21:26
DX: H53.8 Other visual disturbances (principal); R07.0 Pain in throat; R06.02 Shortness of breath; R05 Cough; R09.82 Postnasal drip; G89.29 Other chronic pain; R10.9 Unspecified abdominal pain
CPT/HCPCS: 70450; 80053; 80307; 81001; 82550; 82553; 85025; 93005; 96360; 96374; 99284; J1885

== ENCOUNTER 2020-04-24 21:29 | Emergency (ER) | payer OTHER ==
[~2020-04-24] VITALS: Ht 175.3 cm; Wt 87.9 kg
[2020-04-24] MEDS ORDERED: ACETAMINOPHEN 500 MG TAB PO ONE (23:00)
[2020-04-24] MEDS ORDERED: LIDOCAINE 1% MDV 20ML VIAL SC ONE (23:00)
[2020-04-24] MEDS ORDERED: METOCLOPRAMIDE 10 MG TAB PO ONE (23:00)
--- NOTE | 2020-04-24 23:17 | REPVR ---
PROCEDURE INFORMATION: Exam: CT Head Without Contrast Exam date and time: 04/24/2020 10:57 PM Age: 44 years old Clinical indication: Injury or trauma; Fall; Initial encounter; Blunt trauma (contusions or hematomas); Additional info: Trauma forehead, dizzy, "feel off", severe STARR TECHNIQUE: Imaging protocol: Computed tomography of the head without contrast. Radiation optimization: All CT scans at this facility use at least one of these dose optimization techniques: automated exposure control; mA and/or kV adjustment per patient size (includes targeted exams where dose is matched to clinical indication); or iterative reconstruction. COMPARISON: CT Head without contrast 10/24/2019 10:33 PM FINDINGS: Brain: Normal. No hemorrhage. Unremarkable white matter. No mass effect. Ventricles: No ventriculomegaly. Bones/joints: Unremarkable. No acute fracture. Paranasal sinuses: Visualized sinuses are unremarkable. No fluid levels. Mastoid air cells: Visualized mastoid air cells are well aerated. Soft tissues: Unremarkable. IMPRESSION: No acute intracranial abnormality. Electronically signed by: Adrien Gifford On 04/24/2020 23:17:28 PM
[2020-04-25] MEDS ORDERED: BOOSTRIX/ADACEL VACCINE (DIPHTH/PERTUSS/ACELL/TETANUS) 0.5ML SYR IM ONE
[2020-04-25 00:07] VITALS: BP 126/75
== END 2020-04-25 00:10 | disposition home or self-care (01) ==
LOC: M ED 21:29
DX: S01.111A Laceration without foreign body of right eyelid and periocular area, initial encounter (principal); S06.0X0A Concussion without loss of consciousness, initial encounter; W01.190A Fall on same level from slipping, tripping and stumbling with subsequent striking against furniture, initial encounter; Y92.009 Unspecified place in unspecified non-institutional (private) residence as the place of occurrence of the external cause; Y93.9 Activity, unspecified; Y99.9 Unspecified external cause status

== ENCOUNTER 2020-07-25 19:39 | Emergency (ER) | payer OTHER ==
[~2020-07-25] VITALS: Ht 175.3 cm; Wt 86.5 kg
[2020-07-25] MEDS ORDERED: KETOROLAC 60MG 2ML VIAL IM ONE (21:00)
[2020-07-25] MEDS ORDERED: LIDOCAINE 4% CREAM 5GM (LMX4) TOP ONE (21:15)
--- NOTE | 2020-07-25 21:45 | REPVR ---
PROCEDURE INFORMATION: Exam: CT Cervical Spine Without Contrast Exam date and time: 07/25/2020 9:20 PM Age: 44 years old Clinical indication: Neck pain; Additional info: Severe neck pain, limited rom TECHNIQUE: Imaging protocol: Computed tomography images of the cervical spine without contrast. Radiation optimization: All CT scans at this facility use at least one of these dose optimization techniques: automated exposure control; mA and/or kV adjustment per patient size (includes targeted exams where dose is matched to clinical indication); or iterative reconstruction. COMPARISON: MRI-Spine,Cervical without con 08/18/2018 5:27 PM FINDINGS: Bones/joints: Old nonunited fracture of the right 1st rib. Multilevel facet DJD. No acute fracture or bone lesions. Discs/Spinal canal/Neural foramina: Advanced discogenic degenerative changes throughout the cervical spine. There are large posterior disc bulges causing mild spinal stenosis at C5-C6 and C6-C7. Lungs: Lung apices are normal. Soft tissues: Unremarkable. IMPRESSION: 1. No fracture or malalignment. 2. Degenerative spondylosis as above. Spinal stenosis at C5-C6 and C6-C7. Electronically signed by: Frankie Rogers On 07/25/2020 21:45:15 PM
[2020-07-25] MEDS ORDERED: ROBA750T4 PO (22:09)
[2020-07-25] MEDS ORDERED: VALI10TA PO ×4 (22:09→22:36)
[2020-07-25] MEDS ORDERED: ANEC4CRE3 TOP (22:09)
[2020-07-25] MEDS ORDERED: NAPR-837 PO (22:09)
[2020-07-25 22:11] VITALS: BP 154/90
[2020-07-25] MEDS ORDERED: methocarbamoL 750 MG TAB PO ONE (22:15)
[2020-07-25] MEDS ORDERED: diazePAM 10 MG TAB PO ONE (22:15)
== END 2020-07-25 22:45 | disposition home or self-care (01) ==
LOC: M ED 19:39
DX: M50.30 Other cervical disc degeneration, unspecified cervical region (principal); M48.02 Spinal stenosis, cervical region; M47.812 Spondylosis without myelopathy or radiculopathy, cervical region; R51.9 Headache, unspecified; K21.9 Gastro-esophageal reflux disease without esophagitis; S22.31XK Fracture of one rib, right side, subsequent encounter for fracture with nonunion; X58.XXXA Exposure to other specified factors, initial encounter; Z79.899 Other long term (current) drug therapy
CPT/HCPCS: 72125; 96372; 99283; J1885

== ENCOUNTER → 2020-09-24 | Outpatient (REF) | payer OTHER ==
[~2020-09-24] MED LIST changes: +ANEC4CRE3 TOP; +NAPR-837 PO; +ROBA750T4 PO; +VALI10TA PO
== END ==
LOC: M LAB REF 16:45
PROVIDERS: ATTEND Physician Assistant
DX: R07.0 Pain in throat (principal)

== ENCOUNTER → 2020-09-24 | Outpatient (CLI) | payer OTHER ==
--- NOTE | 2020-09-24 15:13 | REPPI ---
INDICATION: COUGH,SOB,FATIGUE HC COVID. COMPARISON: 07/05/2019, 09/18/2017. TECHNIQUE: Two views FINDINGS: Of the lung caldwell are well inflated. The CP angles are sharply defined there is no lateral pleural thickening. There is some minor apical pleural scarring right greater than left. No dense consolidation or parenchymal mass. No definite interstitial changes present. Heart is not enlarged. The aorta and airway are grossly intact hilar contour symmetric and unchanged from previous studies. No abnormal widening of the mediastinum. Bony thorax shows some small marginal osteophytes in the thoracic spine without compression deformity or destructive lesion. No free air under the diaphragm. IMPRESSION: 1. Negative chest for infiltrate, pleural effusion, parenchymal mass or any significant interstitial lung disease. Stable exam without acute findings since 2019. <Electronically signed by Eric Marx > 09/24/20 [id number]
== END ==
LOC: M PLAIMG 14:53
PROVIDERS: ATTEND Physician Assistant
DX: R05 Cough (principal); R06.02 Shortness of breath; R53.83 Other fatigue; Z86.16 Personal history of COVID-19

== ENCOUNTER → 2020-10-01 | Outpatient (REF) | payer OTHER ==
[2020-10-01 14:18] LABS: BASO # 0.1 10^3/uL (0.0-0.2); EOS # 0.4 10^3/uL (0.0-0.5); EOS % 4.8 % (0.0-3.0); HEMATOCRIT 47.2 % (42.0-52.0); HEMOGLOBIN 15.8 g/dl (13.5-17.5); LYMPH # 2.7 10^3/uL (1.5-5.0); LYMPH % 30.2 % (24.0-44.0); MEAN CORPUSCULAR HEMOGLOBIN 29.8 pg (27.0-33.0); MEAN CORPUSCULAR HGB CONC 33.5 g/dl (32.0-36.5); MEAN CORPUSCULAR VOLUME 89.1 fl (80.0-96.0); MONO # 0.7 10^3/uL (0.0-0.8); MONO % 8.4 % (2.0-8.0); NEUTROPHILS # 4.8 10^3/uL (1.5-8.5); NEUTROPHILS % 54.6 % (36.0-66.0); PLATELET COUNT, AUTOMATED 307 10^3/uL (150-450); WHITE BLOOD COUNT 8.8 10^3/uL (4.0-10.0)
[2020-10-01 15:15] LABS: ALBUMIN 4.1 GM/DL (3.2-5.2); ALT/SGPT 51 U/L (12-78); BILIRUBIN,TOTAL 0.3 MG/DL (0.2-1.0); BLOOD UREA NITROGEN 16 MG/DL (7-18); CALCIUM LEVEL 9.4 MG/DL (8.5-10.1); CARBON DIOXIDE LEVEL 30 MEQ/L (21-32); CHLORIDE LEVEL 101 MEQ/L (98-107); FREE T4 0.85 NG/DL (0.76-1.46); GLOMERULAR FILTRATION RATE > 60.0 (>60); GLUCOSE, FASTING 87 MG/DL (70-100); POTASSIUM SERUM 4.4 MEQ/L (3.5-5.1); SODIUM LEVEL 138 MEQ/L (136-145); TOTAL PROTEIN 7.5 GM/DL (6.4-8.2)
== END ==
LOC: M SFHCPLAZ 10:06
PROVIDERS: ATTEND Physician Assistant
DX: B94.8 Sequelae of other specified infectious and parasitic diseases (principal); R06.02 Shortness of breath; R53.83 Other fatigue

== ENCOUNTER → 2020-11-21 | Outpatient (CLI) | payer OTHER ==
--- NOTE | 2020-11-21 13:10 | PFTRPT ---
Height: 69.00 Inches Weight: 209.00 Lbs BSA: 2.10 Diagnosis: B94.8 DATE: 11/21/2020 ORDERING PHYSICIAN: Bharat Bliss, Pre and post bronchodilator studies have excellent technical quality. Some difficulty with the required maneuver is noted. Forced vital capacity is normal. FEV1 is in proportion. Obstructive index is therefore normal. Expiratory limit of the flow-volume loop is normal. No significant bronchodilator response is identified. Total lung capacity is normal. Residual volume is in proportion. Diffusing capacity is normal. No hemoglobin available for correction. Airway resistance and conductance are normal. IMPRESSION: Normal study. MTDD
--- NOTE | 2020-11-26 08:04 | ECHO ---
DATE OF PROCEDURE: 11/21/2020 Age: 45 Gender: Male REFERRING PHYSICIAN: Bharat Bliss DO. REASON FOR STUDY: Shortness of breath. 2D MEASUREMENTS: IVS 1.2 cm LV 4.4 cm LVPW 1.1 cm LA 3.6 cm Aorta 3.2 cm IVC 1.7 cm DOPPLER MEASUREMENT Peak velocity across the aortic valve 1.1 m/s Peak velocity across the LVOT 1.0 m/s Mitral E 0.82 Mitral A 0.47 with a ratio of 1.7 2D COMMENTS: 1. Normal left ventricular size, wall thickness, and normal global left ventricular systolic function. The estimated left ventricular systolic ejection fraction is 60% to 65%. 2. Normal left atrium. Normal right atrium and right ventricle. 3. The atrial septum appeared to be normal without evidence of defect or shunt. 4. Normal aortic root. 5. No pericardial effusion seen. 6. Normal aortic valve. 7. Minimally calcified mitral annulus with normal anterior mitral valve leaflet motion. Normal tricuspid valve. The pulmonic valve and proximal pulmonary artery branches were not well visualized. 8. The inferior vena cava was normal in size, central venous pressure is most likely normal. DOPPLER: Detects trace mitral regurgitation. Assessment of the left ventricular diastolic function was normal. IMPRESSION: 1. Normal global left ventricular systolic and diastolic function. 2. Mitral annular calcification with trace mitral regurgitation. 3. Global longitudinal strain/GLS was normal at -20%. 4. Relatively normal transthoracic echocardiogram. MTDD
== END ==
LOC: M CARPUL 11:22
PROVIDERS: ATTEND Family Medicine
DX: R06.02 Shortness of breath (principal); B94.8 Sequelae of other specified infectious and parasitic diseases

== ENCOUNTER → 2020-11-28 | Outpatient (CLI) | payer OTHER ==
[~2020-11-28] MED LIST changes: +ISOVUE-370 76% 100ML VIAL As Ordered ONE
--- NOTE | 2020-11-28 16:28 | REP ---
INDICATION: SOB, POST COVID SYNDROME. COMPARISON: 02/26/2009 the only prior TECHNIQUE: Standard helical technique after the intravenous administration of 100 cc Isovue 370 FINDINGS: There is no mediastinal or hilar adenopathy. There are no pleural or pericardial effusions. The imaged upper abdomen and imaged osseous structures are within normal limits. Evaluation of the lung caldwell shows minimal biapical pleuroparenchymal scarring status quo. There is a stable 5 mm size nodule in the posterior segment of the right upper lobe. There is mild cylindrical bronchiectasis. No new abnormal nodules, masses, or opacities have developed. IMPRESSION: Minimal chronic changes as described above. There is no evidence of acute disease. <Electronically signed by Franco Zavala > 11/28/20 [id number]
== END ==
LOC: M RAD 15:32
PROVIDERS: ATTEND Family Medicine
DX: R06.02 Shortness of breath (principal); Z86.16 Personal history of COVID-19
CPT/HCPCS: 71260; Q9967

== ENCOUNTER 2022-02-03 20:00 | Emergency (ER) | payer OTHER ==
[~2022-02-03] VITALS: Ht 175.3 cm; Wt 90.0 kg
[~2022-02-03 20:00] MED LIST changes: -ISOVUE-370 76% 100ML VIAL As Ordered ONE
[2022-02-03 20:50] LABS: BASO # 0.1 10^3/uL (0.0-0.2); BASO % 0.6 % (0.0-1.0); EOS # 0.3 10^3/uL (0.0-0.5); HEMATOCRIT 41.1 % (42.0-52.0); HEMOGLOBIN 13.9 g/dl (13.5-17.5); LYMPH # 3.4 10^3/uL (1.5-5.0); LYMPH % 39.6 % (24.0-44.0); MEAN CORPUSCULAR HGB CONC 33.8 g/dl (32.0-36.5); MEAN CORPUSCULAR VOLUME 88.6 fl (80.0-96.0); MONO # 0.8 10^3/uL (0.0-0.8); MONO % 9.2 % (2.0-8.0); NEUTROPHILS # 3.9 10^3/uL (1.5-8.5); NEUTROPHILS % 46.4 % (36.0-66.0); PLATELET COUNT, AUTOMATED 270 10^3/uL (150-450); RED BLOOD COUNT 4.64 10^6/uL (4.30-6.10); WHITE BLOOD COUNT 8.5 10^3/uL (4.0-10.0)
[2022-02-03 21:12] LABS: ALBUMIN 3.8 GM/DL (3.2-5.2); ALT/SGPT 27 U/L (12-78); BILIRUBIN,DIRECT 0.1 MG/DL (0.0-0.2); BILIRUBIN,TOTAL 0.2 MG/DL (0.2-1.0); BLOOD UREA NITROGEN 21 MG/DL (7-18); CALCIUM LEVEL 8.2 MG/DL (8.5-10.1); CARBON DIOXIDE LEVEL 29 MEQ/L (21-32); CHLORIDE LEVEL 104 MEQ/L (98-107); GLOMERULAR FILTRATION RATE > 60.0 (>60); GLUCOSE, FASTING 110 MG/DL (70-100); LIPASE 124 U/L (73-393); POTASSIUM SERUM 3.6 MEQ/L (3.5-5.1); SODIUM LEVEL 138 MEQ/L (136-145); TOTAL PROTEIN 6.9 GM/DL (6.4-8.2)
[2022-02-04] MEDS ORDERED: KETOROLAC 30 MG/ML 1ML VIAL IV ONE (01:00)
[2022-02-04 02:28] VITALS: BP 126/65
[2022-02-04 03:55] LABS: GC DNA AMPLIFICATION NEGATIVE (NEGATIVE)
== END 2022-02-04 02:28 | disposition home or self-care (01) ==
LOC: M ED 20:00
DX: R30.0 Dysuria (principal); R10.31 Right lower quadrant pain; Z87.442 Personal history of urinary calculi; K21.9 Gastro-esophageal reflux disease without esophagitis; Z79.899 Other long term (current) drug therapy
CPT/HCPCS: 74176; 80048; 80076; 81001; 83605; 83690; 85025; 87661; 87810; 87850; 96374; 99284; J1885

== ENCOUNTER 2022-06-19 12:50 | Emergency (ER) | payer OTHER ==
[~2022-06-19] VITALS: Ht 175.3 cm; Wt 96.0 kg
[2022-06-19 14:15] LABS: VENOUS BASE EXCESS 2.7 (-2.0-2.0); VENOUS HCO3 27.7 MEQ/L (23.0-27.0); VENOUS O2 SATURATION 79.5 % (60.0-80.0); VENOUS PARTIAL PRESSURE CO2 43.8 mmHg (38.0-50.0); VENOUS PARTIAL PRESSURE O2 41.5 mmHg (30.0-50.0); VENOUS PH 7.419 UNITS (7.330-7.430); VENOUS STANDARD HCO3 26.4 MEQ/L; VENOUS TOTAL CO2 29.1 MEQ/L (24.0-28.0)
[2022-06-19 14:22] LABS: BASO % 0.5 % (0.0-1.0); EOS # 0.2 10^3/uL (0.0-0.5); HEMATOCRIT 41.4 % (42.0-52.0); HEMOGLOBIN 14.5 g/dl (13.5-17.5); LYMPH # 2.1 10^3/uL (1.5-5.0); LYMPH % 32.5 % (24.0-44.0); MEAN CORPUSCULAR HEMOGLOBIN 29.8 pg (27.0-33.0); MONO # 0.5 10^3/uL (0.0-0.8); MONO % 7.4 % (2.0-8.0); NEUTROPHILS # 3.6 10^3/uL (1.5-8.5); NEUTROPHILS % 56.3 % (36.0-66.0); PLATELET COUNT, AUTOMATED 274 10^3/uL (150-450); RED BLOOD COUNT 4.87 10^6/uL (4.30-6.10); WHITE BLOOD COUNT 6.3 10^3/uL (4.0-10.0)
[2022-06-19 15:14] LABS: CK-MB VALUE MASS < 1.0 NG/ML (<3.6); CPK CREATINE PHOSPHOKINASE 100 U/L (39-308)
[2022-06-19 15:18] LABS: ALBUMIN 3.7 GM/DL (3.2-5.2); ALT/SGPT 23 U/L (12-78); BILIRUBIN,DIRECT < 0.1 MG/DL (0.0-0.2); BILIRUBIN,TOTAL 0.5 MG/DL (0.2-1.0); BLOOD UREA NITROGEN 15 MG/DL (7-18); CALCIUM LEVEL 8.9 MG/DL (8.5-10.1); CARBON DIOXIDE LEVEL 28 MEQ/L (21-32); CHLORIDE LEVEL 104 MEQ/L (98-107); CREATININE FOR GFR 0.76 MG/DL (0.70-1.30); GLOMERULAR FILTRATION RATE > 60.0 (>60); GLUCOSE, FASTING 91 MG/DL (70-100); NT-PRO BNP 26 PG/ML (<125); POTASSIUM SERUM 3.7 MEQ/L (3.5-5.1); SODIUM LEVEL 139 MEQ/L (136-145); THYROXINE (T4) 6.9 UG/DL (4.5-12.0); TOTAL PROTEIN 7.2 GM/DL (6.4-8.2)
[2022-06-19] MEDS ORDERED: ISOVUE-370 76% 100ML VIAL As Ordered ONE (15:25)
[2022-06-19] MEDS ORDERED: KETO10TAB PO (16:20)
[2022-06-19 16:40] VITALS: BP 116/86
== END 2022-06-19 16:47 | disposition home or self-care (01) ==
LOC: M ED 13:33
DX: R07.9 Chest pain, unspecified (principal); Z87.442 Personal history of urinary calculi; Z87.891 Personal history of nicotine dependence

== ENCOUNTER → 2022-12-10 | Outpatient (CLI) | payer OTHER ==
[~2022-12-10] MED LIST changes: +KETO10TAB PO
[2022-12-10 15:11] LABS: HEMATOCRIT 44.6 % (42.0-52.0); HEMOGLOBIN 14.9 g/dl (13.5-17.5); MEAN CORPUSCULAR HGB CONC 33.4 g/dl (32.0-36.5); MEAN CORPUSCULAR VOLUME 89.9 fl (80.0-96.0); PLATELET COUNT, AUTOMATED 286 10^3/uL (150-450); RED BLOOD COUNT 4.96 10^6/uL (4.30-6.10); WHITE BLOOD COUNT 6.2 10^3/uL (4.0-10.0)
[2022-12-10 15:51] LABS: ALBUMIN 4.3 G/DL (3.2-5.2); ALKALINE PHOSPHATASE 63 U/L (46-116); ALT/SGPT 26 U/L (7.0-40); AST/SGOT 15 U/L (<34); BILIRUBIN,TOTAL 0.5 MG/DL (0.3-1.2); BLOOD UREA NITROGEN 20 MG/DL (9-23); CALCIUM LEVEL 9.3 MG/DL (8.5-10.1); CARBON DIOXIDE LEVEL 30 MMOL/L (20-31); CHLORIDE LEVEL 104 MMOL/L (98-107); CREATININE FOR GFR 0.85 MG/DL (0.70-1.30); GLOMERULAR FILTRATION RATE > 60.0 (>60); GLUCOSE, FASTING 87 MG/DL (60-100); MAGNESIUM LEVEL 2.1 MG/DL (1.8-2.4); POTASSIUM SERUM 4.6 MMOL/L (3.5-5.1); SODIUM LEVEL 138 MMOL/L (136-145); THYROID STIMULATING HORMONE 2.639 uIU/ML (0.55-4.78); TOTAL PROTEIN 7.1 G/DL (5.7-8.2)
[2022-12-10 16:54] LABS: HEMOGLOBIN A1c 5.3 % (4.0-6.0)
== END ==
LOC: M PLALAB 09:41
PROVIDERS: ATTEND Student in an Organized Health Care Education/Training Program
DX: G62.9 Polyneuropathy, unspecified (principal)

== ENCOUNTER → 2022-12-25 | Outpatient (CLI) | payer OTHER | LOC: M WUC 09:43 | PROVIDERS: ATTEND Student in an Organized Health Care Education/Training Program | DX: M25.562 Pain in left knee (principal); M25.572 Pain in left ankle and joints of left foot; M77.32 Calcaneal spur, left foot; M17.12 Unilateral primary osteoarthritis, left knee ==

== ENCOUNTER 2023-04-21 18:24 | Emergency (ER) | payer OTHER ==
[~2023-04-21] VITALS: Ht 175.3 cm; Wt 83.3 kg
[~2023-04-21 18:24] MED LIST changes: +DIAZ-654 PO; +MECL-209 PO; -MECL1TAB31 PO; -VALI10TA PO
[2023-04-21 20:33] VITALS: BP 130/77; TEMP 97; O2SAT 97
== END 2023-04-22 02:20 | disposition left against medical advice (07) ==
LOC: M ED 18:24
DX: Z53.21 Procedure and treatment not carried out due to patient leaving prior to being seen by health care provider (principal)

== ENCOUNTER 2024-06-09 18:13 | Emergency (ER) | payer OTHER, SELFPAY ==
[~2024-06-09] VITALS: Ht 175.3 cm; Wt 83.5 kg
[2024-06-09] MEDS: KETOROLAC 30 MG/ML 1ML VIAL IV ONE (21:34)
[2024-06-09] MEDS: ONDANSETRON 4MG 2ML VIAL IV ONE (21:34)
[2024-06-09] MEDS ORDERED: ISOVUE-370 76% 100ML VIAL As Ordered ONE (21:47)
[2024-06-09 21:50] LABS: BASO # 0.1 10^3/uL (0.0-0.2); BASO % 0.8 % (0.0-1.0); EOS # 0.3 10^3/uL (0.0-0.5); EOS % 4.5 % (0.0-3.0); HEMATOCRIT 41.4 % (42.0-52.0); HEMOGLOBIN 14.3 g/dl (13.5-17.5); LYMPH % 41.8 % (24.0-44.0); MEAN CORPUSCULAR HEMOGLOBIN 30.8 pg (27.0-33.0); MEAN CORPUSCULAR HGB CONC 34.5 g/dl (32.0-36.5); MONO # 0.6 10^3/uL (0.0-0.8); MONO % 7.8 % (2.0-8.0); NEUTROPHILS # 3.2 10^3/uL (1.5-8.5); NEUTROPHILS % 44.8 % (36.0-66.0); PLATELET COUNT, AUTOMATED 271 10^3/uL (150-450); RED BLOOD COUNT 4.65 10^6/uL (4.30-6.10); WHITE BLOOD COUNT 7.2 10^3/uL (4.0-10.0)
[2024-06-09 22:13] LABS: LIPASE 31 U/L (12-53)
[2024-06-09 22:15] LABS: ALKALINE PHOSPHATASE 57 U/L (40-129); ALT/SGPT 23 U/L (7.0-40); AST/SGOT 14 U/L (<34); BILIRUBIN,DIRECT 0.2 MG/DL (<0.4); BILIRUBIN,TOTAL 0.7 MG/DL (0.3-1.2); BLOOD UREA NITROGEN 20 MG/DL (9-23); CALCIUM LEVEL 9.1 MG/DL (8.5-10.1); CARBON DIOXIDE LEVEL 28 MMOL/L (20-31); CHLORIDE LEVEL 109 MMOL/L (98-107); CREATININE FOR GFR 0.79 MG/DL (0.70-1.30); GLOMERULAR FILTRATION RATE > 60.0 (>60); GLUCOSE, FASTING 85 MG/DL (60-100); POTASSIUM SERUM 3.9 MMOL/L (3.5-5.1); SODIUM LEVEL 140 MMOL/L (136-145); TOTAL PROTEIN 6.9 G/DL (5.7-8.2)
[2024-06-09] MEDS ORDERED: MIRA3350 PO (22:44)
[2024-06-09 22:58] VITALS: BP 126/80; TEMP 95.6; O2SAT 96
== END 2024-06-09 23:06 | disposition home or self-care (01) ==
LOC: M ED 18:13
DX: K59.00 Constipation, unspecified (principal); R19.05 Periumbilic swelling, mass or lump; K21.9 Gastro-esophageal reflux disease without esophagitis; M54.50 Low back pain, unspecified; Z87.442 Personal history of urinary calculi; Z79.899 Other long term (current) drug therapy
CPT/HCPCS: 74177; 80047; 80048; 80076; 81001; 83690; 85025; 96374; 99284; J1885; J2405; Q9967

== ENCOUNTER → 2024-12-26 | Outpatient (CLI) | payer OTHER ==
[~2024-12-26] MED LIST changes: +MIRA3350 PO
== END ==
LOC: M CLY 14:37
PROVIDERS: ATTEND Physician Assistant
DX: M54.2 Cervicalgia (principal); M47.812 Spondylosis without myelopathy or radiculopathy, cervical region